=== PATIENT | female | born 1990 | race Caucasian/White ===

== ENCOUNTER → 2017-07-27 14:57 | Outpatient (CLI) | payer MEDICAID, SELFPAY ==
[2017-07-27 15:29] LABS: Basophils # 0.1 K/mm3 (0-0.2); Basophils % 0.8 % (0.1-2.0); Eosinophils # 1.7 K/mm3 (0.0-0.4); Hemoglobin 14.8 g/dL (12.2-16.2); Lymphocytes # 3.7 K/mm3 (0.7-4.5); Lymphocytes % 30.8 K/mm3 (10-50); Mean Corpuscular HGB Conc 33.7 g/dL (31.8-35.4); Mean Corpuscular Hemoglobin 30.1 pg (27.0-31.2); Mean Corpuscular Volume 89.3 fl (81-99); Mean Platelet Volume 8.2 fl (7.4-10.4); Monocytes # 0.4 K/mm3 (0.1-1.0); Monocytes % 3.6 % (1.7-9.3); Neutrophils # 6.1 K/mm3 (1.8-7.8); Neutrophils % 50.9 % (37.0-80.0); Platelet Count 311 K/mm3 (142-424); Red Blood Count 4.93 M/mm3 (4.20-5.40); Red Cell Distribution Width 12.5 % (11.5-17.5); White Blood Count 11.9 K/mm3 (4.8-10.8)
[2017-07-27 16:30] LABS: Alanine Aminotransferase 23 U/L (12-78); Albumin/Globulin Ratio 1.1 (1.1-1.8); Alkaline Phosphatase 119 U/L (46-116); Anion Gap 13.8 mEq/L (5-15); Aspartate Amino Transferase 16 U/L (15-37); Bilirubin,Total 0.6 mg/dL (0.2-1.0); Blood Urea Nitrogen 7 mg/dL (7-18); Calcium 9.1 mg/dL (8.5-10.1); Carbon Dioxide 27 mmol/L (21.0-32.0); Chloride 104 mmol/L (98-107); Creatinine,Serum 0.75 mg/dL (0.55-1.02); Estimated Glomerular Filt Rate 93 ml/min (>60); GFR (African American) 113 ML/MIN (>60); Globulin 3.7 gm/dl (1.3-3.2); Glucose 75 mg/dL (74-106); Potassium 3.8 mmoL/L (3.5-5.1); Sodium 141 mmol/L (136-145); Total Protein,Serum 7.7 gm/dL (6.4-8.2)
[2017-07-27 16:42] LABS: C-Reactive Protein < 0.2 mg/L (0.0-0.9)
[2017-07-27 16:57] LABS: Erythrocyte Sedimentation Rate 13 mm/hr (0-20)
[2017-07-29 20:12] LABS: RA Latex Turbid. 32.7 IU/mL (0.0-13.9)
[2017-07-30 12:07] LABS: PTT-LA 44.1 sec (0.0-51.9); dRVVT 43.6 sec (0.0-47.0)
[2017-07-31 11:11] LABS: Anti-Jo-1 <0.2 AI (0.0-0.9); Anti-Smith Antibody <0.2 AI (0.0-0.9); Antichromatin Antibodies <0.2 AI (0.0-0.9); Antiscleroderma-70 Antibodies <0.2 AI (0.0-0.9); RNP Antibodies 0.3 AI (0.0-0.9); Sjogren's Anti-SS-A <0.2 AI (0.0-0.9); Sjogren's Anti-SS-B <0.2 AI (0.0-0.9)
[2017-08-02 06:12] LABS: Anti-Cyclic Citrullinated Pept 6 units (0-19); Lupus Reflex Interpretation Comment: (.)
[2017-08-02 06:14] LABS: Anti-Centromere B Antibodies <0.2 AI (0.0-0.9); Anti-DNA (DS) Ab Qn <1 IU/mL (0-9)
== END ==
PROVIDERS: Visit Provider Physician Assistant
DX: I73.00 Raynaud's syndrome without gangrene (principal); R20.0 Anesthesia of skin; Z83.2 Family history of diseases of the blood and blood-forming organs and certain disorders involving the immune mechanism
CPT/HCPCS: 36415; 80053; 85025; 85613; 85651; 86038; 86140; 86200; 86431

== ENCOUNTER 2017-08-08 09:29 | Day surgery (SDC) | payer MEDICAID, SELFPAY ==
[2017-08-07 16:24] VITALS: BMI 25.0
[2017-08-08] VITALS (9 sets, daily range): BP systolic 97–116; BP diastolic 65–78; PULSE 64–90; RESP 16–18; TEMP 36.2–36.9; O2SAT 95–99
[2017-08-08 10:02] LABS: Urine Pregnancy, HCG Qual. Negative (Negative)
--- NOTE | 2017-08-08 10:57 | HMH.OPNOTE ---
Date of procedure: 08/08/17 Pre-op Diagnosis:: 1 cm left facial cheek sebaceous cyst Post-op Diagnosis:: Same Procedure performed:: Excision of 1 cm left facial cheek cyst Surgeon:: Dimitri Rolon MD REHABILITATION AIDE/SCHEDULER:: Michael Willard Anesthesia: LMA Estimated blood loss (mL): 5 Operative findings:: Sebaceous cyst excised in toto and passed off for pathologic evaluation Operative note:: After informed consent was obtained, the patient was taken to the operating room and placed in the supine position. General anesthesia with laryngeal mask airway was achieved. Her left facial cheek was prepped and draped in the sterile fashion. After infiltration of local acetic an elliptical incision was made around the lesion. The cystic lesion was excised in toto and pathologic evaluation. The subcutaneous tissue was approximated with 3-0 Vicryl and skin was then closed with Steri-Strips. Dressings were applied. The patient's laryngeal mask airway was removed and she was transferred to recovery in stable condition. Condition: stable Disposition: PACU Specimens:: Left facial cheek cyst Complications:: No immediate
--- NOTE | 2017-08-08 11:01 | HMH.ANESCL ---
[facility] Anesthesia Checklist - Patient Identification Patient Identification: Arm Band - Structural Data Admitted From: Home Planned Operative Procedure/s: excision sebaceous cyst left face Consent for Planned Operative Procedure(s) Verified: Yes Verified Documents: Surgical Consent, History and Physical - NPO Status Verified Time NPO: 00:00 - Additional verifications Anesthesia Reactions: No - Airway Assessment C-Spine Mobility Assessed: Yes (mp2) TMJ Mobility Assessed: Yes Dentition: Good Dentition - Neurological Assessment Level of Consciousness: Awake, Alert - Anesthesia Plan Anesthesia Risk discussed: Yes Anesthesia Plan: Verified ASA Class: II Anesthesia Type: MAC [facility] Anesthesia HX I have reviewed the patient's past medical history: Yes Medical History: Reports:: MRSA (15yrs ago on right side) Denies:: Cancer, Diabetes Mellitus Type 1, Diabetes Mellitus Type 2, Internal Pacemaker, Seizures Other Medical History: Reports: Other (smoker) Laterality Cases: Bilateral: Tonsillectomy Other Surgeries: Yes: . No: Pacemaker Amputation: No Fractures: No *Family Hx:: No significant family history, Bleeding Disorder
--- NOTE | 2017-08-08 11:03 | P.PN_ITS ---
[facility] Anesthesia Record Part II Discharge Time: 11:30 Destination: [facility] PACU nurse assessment reviewed?: Yes Patient Condition:: Good Anesthesia Complications:: None
--- NOTE | 2017-08-08 11:03 | P.PN_ITS ---
[facility] Anesthesia Record Part I Intake, IV Amount: 500 Estimated blood loss (mL): 5 Urine output (mL): 0 Blood Pressure: 112/78 SaO2: 99 Pulse Rate: 90 Respiratory Rate: 16 Temperature: 97.1 F Patient is:: Drowsy, Stable Stable to PACU at:: 11:00
--- NOTE | 2017-08-08 11:03 | HMH.ANESII ---
[facility] Anesthesia Record Part II Discharge Time: 11:30 Destination: [facility] PACU nurse assessment reviewed?: Yes Patient Condition:: Good Anesthesia Complications:: None
== END 2017-08-08 12:00 | disposition home or self-care (01) ==
LOC: OR 09:30
PROVIDERS: Family Provider Physician Assistant; PCP Physician Assistant; Visit Provider Surgery
PROC: (CPT 11441; principal; 2017-08-08 13:00)
DX: L72.11 Pilar cyst (principal)
CPT/HCPCS: 11441; 81025; 96374; J2405

== ENCOUNTER → 2019-05-01 18:04 | Outpatient (CLI) | payer OTHER, SELFPAY | PROVIDERS: PCP Physician Assistant; Visit Provider Podiatrist | DX: L84 Corns and callosities (principal); B07.0 Plantar wart | CPT/HCPCS: 87102; 87206; 87220 ==

== ENCOUNTER 2021-02-27 17:11 | Emergency (ER) | payer OTHER, SELFPAY ==
[2021-02-27 17:15] VITALS: BP 137/98; PULSE 91; RESP 16; TEMP 37.2; O2SAT 97; BMI 33.7
--- NOTE | 2021-02-27 18:20 | HMH.EDUTC ---
[facility] [place] Clinical Impression: Shingles Qualifiers: Herpes zoster complications: without complications Qualified Code(s): B02.9 - Zoster without complications Disposition: Home, Self-Care Condition on Discharge: Good Instructions: Shingles, DI for Shingles, Acyclovir, Tobramycin Ophthalmic Additional Instructions: Take medication as prescribed If your eye gets worse or you start have Vision changes Call Dr Dutton tomorrow as instructed at [phone] or if no changes be at [facility] on Monday at 10am for further evaluation Return if needed Do not touch or handle baby until your lesions have scabbed over and clearing up Straight to ER if any worsening of symptoms Make sure to check with pharmacy about your medication to make sure they are safe to use while Prescriptions: Acyclovir 800 mg PO 5XDAY 7 Days #35 tab Transmission Status: Pending to [facility] # Tobramycin/Dexamethasone [Tobradex Eye Drops] 1 drp EYE-LEFT Q4H #5 ml Transmission Status: Pending to [facility] # Referrals: Provider,Referral, [Primary Care Provider] - As needed [facility] [Other] - 03/01/21 10:00 am Time of Disposition: 18:36 Medical Decision Making - Christiano Inquiry Pt receiving controlled substance: No Christiano was queried for this patient: No Vital Signs: 02/27/21 17:15 Temperature 99.0 F Temperature Source Oral Pulse Rate [Right Brachial] 91 H Respiratory Rate 16 Blood Pressure [Right Arm] 137/98 H Blood Pressure Mean [Right Arm] 111 Blood Pressure Source [Right Arm] Automatic Cuff Blood Pressure Position [Right Arm] Sitting 02 Sat by Pulse Oximetry 97 Oxygen Delivery Method Room Air - Physician Consults Physician Consulted: Dr Dutton Time: 18:40 Reason -: Opthalmology Eval/Care Comment/Response: Spoke with Dr Dutton about patient and informed him of concern for shingles rash in close proxiemty to eye and he advised to start her on Tobrodex eye drops one drop every 4 hours and have her come to the office on Monday at 10am or call him tomorrow if no improvement for further instructions [facility] [place] HPI - General Stated complaint: rash L eye/face, headaches Time Seen by Provider: 02/27/21 18:20 Mode of Arrival: Ambulatory Source of Information: Patient Limitations: No Limitations Description of Symptoms (Recalled from Triage Doc. by RN): PATIENT C/O RASH TO FOREHEAD/DRUZE AREA WITH ITCHY AND BURNING EYES, HEAD PAIN AND LIGHT SENSITIVITY X 3 DAYS HEENT Symptoms (Recalled from RN notes): Yes Resp Symptoms (Recalled from RN notes): No Skin Symptoms (Recalled from RN notes): Yes MS Symptoms (Recalled from RN notes): No Functional Status (Recalled from RN notes): WNL - History of Present Illness Provider Complaint: Patient states that she noticed she had a rash on the left side of her forehead around her hair line State that it would itchy and burn when she would scratch it State that now it has spread on her forehead area and down into her eyebrow,nose under her eye area States that it is painful and is making her eyes hurt and water - Related Data Home Medications Medication Instructions Recorded Confirmed Buspirone HCl [Buspirone 7.5mg 7.5 mg PO TID 02/27/21 02/27/21 tablets] Ibuprofen [Ibuprofen 600mg 600 mg PO Q6H 02/27/21 02/27/21 Tablet] cephALEXin [Cephalexin 250mg Tab] 250 mg PO DAILY 02/27/21 02/27/21 Previous Rx's Medication Instructions Recorded Acyclovir 800 mg PO 5XDAY 7 Days #35 tab 02/27/21 Tobramycin/Dexamethasone [Tobradex 1 drp EYE-LEFT Q4H #5 ml 02/27/21 Eye Drops] Allergies Allergy/AdvReac Type Severity Reaction Status Date / Time No Known Allergies Allergy Verified 05/31/19 14:33 - Worker's Comp Is this a Worker's Comp case?: No [facility] History - Hepatitis A Screen Drug use history?: No High risk sexual behaviors?: No History of sexually transmitted infection?: No Currently employed?: No Childc
[2021-02-27 18:35] VITALS: BP 137/98; PULSE 91; RESP 16; TEMP 37.2; O2SAT 97
== END 2021-02-27 18:40 | disposition home or self-care (01) ==
PROVIDERS: Emergency Provider Nurse Practitioner
DX: B02.9 Zoster without complications (principal); F17.210 Nicotine dependence, cigarettes, uncomplicated
CPT/HCPCS: 99202; G0463

== ENCOUNTER 2021-11-24 08:26 | Emergency (ER) | payer OTHER, SELFPAY ==
--- NOTE | 2021-11-24 10:03 | EXP.UTC ---
Discharge Plan Disposition Patient Disposition: Home, Self-Care Condition: Good Chief Complaint: Upper Respiratory Infection Prescriptions Prescriptions: New azithromycin [Zithromax Z-Cruz] 250 mg tablet See Rx Instructions .ROUTE .COMPLEX Qty: 6 0RF Rx Instructions: For 250 mg dose pack: take 500 mg today (day 1), then 250 mg for 4 days (days 2-5) albuterol sulfate [Proventil HFA] 90 mcg/actuation HFA aerosol inhaler 1 - 2 inh inhalation Q6H PRN (Reason: shortness of breath or wheezing) Qty: 8.5 0RF guaifenesin [Mucinex] 600 mg tablet extended release 12hr 600 mg PO BID PRN (Reason: cough) Qty: 20 0RF Rx Instructions: 1-2 tabs every 12 hours as directed for congestion make sure to drink plenty of water with medication methylprednisolone [Medrol (Cruz)] 4 mg tablets,dose pack 4 mg PO DAILY 6 Days Qty: 6 0RF Rx Instructions: taper pack as directed No Action buspirone 7.5 MG tablet 7.5 mg PO TID Referrals Referrals: Huma Epps PA [Primary Care Provider] - Enter time for follow up Clinical Impressions Clinical Impression: Strep throat, Sinusitis, Bronchitis Stand Alone Forms Stand Alone Forms: Work/School Release, [facility] Work Release Discharge ED Provider: Beatrice Rodriguez [facility] [place] HPI General Chief complaint: Upper Respiratory Infection Stated complaint: sore throat;cough Time Seen by Provider: 11/24/21 10:10 History of Present Illness Provider Complaint: Patient states that she has been exposed to COVID and strep throat States that she has been having sinus congestion and pressure for over a week, sore scracthy throat and feels like it is trying to move into her chest area States that she use to have an inhaler and thinks she may need another one now too Related Data Home Medications Medication Instructions Recorded Confirmed buspirone 7.5 mg tablet 7.5 mg PO TID Anxiety 02/27/21 02/27/21 Previous Rx's Medication Instructions Recorded albuterol sulfate 90 mcg/actuation 1 - 2 inh inhalation Q6H PRN 11/24/21 aerosol inhaler (Proventil HFA) shortness of breath or wheezing #8.5 grams azithromycin 250 mg tablet See Rx Instructions PO .COMPLEX #6 11/24/21 (Zithromax Z-Cruz) tabs guaifenesin 600 mg tablet, 600 mg PO BID PRN cough #20 tabs 11/24/21 extended release 12 hr (Mucinex) methylprednisolone 4 mg tablets in 4 mg PO DAILY 6 days #6 tabs 11/24/21 a dose pack (Medrol (Cruz)) Allergies Allergy/AdvReac Type Severity Reaction Status Date / Time No Known Allergies Allergy Verified 11/24/21 10:11 [facility] Medical History (Updated 11/24/21 @ 10:22 by Beatrice Rodriguez APRN) Family history of lupus anticoagulant disorder Numbness of fingers Raynaud phenomenon Sebaceous cyst Social History Smoking Status: Current every day smoker tobacco type: cigarettes packs per day: 1 second hand exposure: Yes alcohol intake: never substance use type: denies use current occupational status: unemployed household members: children housing: house ROS Obtained: Yes All systems reviewed & no additional complaints except as documented and Yes Systems reviewed as appropriate & no additional complaints except as documented ENT Ears, Nose, Mouth, and Throat: Reports otalgia, Reports sinus pain, Reports sinus pressure and Reports sore throat Cardiovascular Cardiovascular: Reports system reviewed and no additional complaints, except as documented and Reports as per HPI Respiratory Respiratory: Reports system reviewed and no additional complaints, except as documented, Reports as per HPI, Reports chest congestion and Reports cough Genitourinary Female Genitourinary: Reports system reviewed and no additional complaints, except as documented Neurologic Neurologic: Reports system reviewed and no additional complaints, except as documented Physical Exam General General appearance: alert and in no apparent distress ENT ENT exam: Present mucous m
[2021-11-24 10:04] LABS: UTC Strep Screen (Rapid) Negative (Negative)
[2021-11-24 10:09] VITALS: BP 132/95; PULSE 94; RESP 16; TEMP 36.7; O2SAT 97; BMI 27.4
[2021-11-24 10:31] VITALS: BP 132/95; PULSE 94; RESP 16; TEMP 36.7
== END 2021-11-24 10:57 | disposition home or self-care (01) ==
PROVIDERS: Emergency Provider Nurse Practitioner; PCP Physician Assistant
DX: J06.9 Acute upper respiratory infection, unspecified (principal); J02.9 Acute pharyngitis, unspecified; J32.9 Chronic sinusitis, unspecified; J40 Bronchitis, not specified as acute or chronic; Z20.822 Contact with and (suspected) exposure to COVID-19; F17.210 Nicotine dependence, cigarettes, uncomplicated
CPT/HCPCS: 87880; 99212; C9803; G0463; U0003; U0005

== ENCOUNTER 2022-11-03 19:52 | Emergency (ER) | payer OTHER, SELFPAY ==
[2022-11-03 19:54] VITALS: BP 130/97; PULSE 90; RESP 16; TEMP 36.8; O2SAT 99; BMI 28.3
[2022-11-03 20:56] LABS: Chloride 108 mmol/L (98-107); Potassium 3.5 mmoL/L (3.5-5.1); Sodium 141 mmol/L (136-145)
[2022-11-03 20:59] LABS: Anion Gap 7.5 mEq/L (5-15); Blood Urea Nitrogen 10 mg/dl (7-17); Carbon Dioxide 29 mmol/L (22.0-30.0); Creatinine Clearance Estimated 159 mL/min (50-200); Estimated Glomerular Filt Rate 116 ml/min (>60); GFR (African American) 140 ML/MIN (>60)
[2022-11-03 21:00] LABS: Calcium 8.7 mg/dl (8.4-10.2); Glucose 105 mg/dl (74-100)
--- NOTE | 2022-11-03 21:14 | HMH.EDGENADL ---
Discharge Plan Disposition Patient Disposition: Home, Self-Care Condition: Good Prescriptions Prescriptions: New valacyclovir 1 gram tablet 1,000 mg PO Q8H 7 Days Qty: 21 0RF No Action buspirone 7.5 MG tablet 7.5 mg PO TID azithromycin [Zithromax Z-Cruz] 250 mg tablet See Rx Instructions .ROUTE .COMPLEX Qty: 6 0RF Rx Instructions: For 250 mg dose pack: take 500 mg today (day 1), then 250 mg for 4 days (days 2-5) albuterol sulfate [Proventil HFA] 90 mcg/actuation HFA aerosol inhaler 1 - 2 inh inhalation Q6H PRN (Reason: shortness of breath or wheezing) Qty: 8.5 0RF guaifenesin [Mucinex] 600 mg tablet extended release 12hr 600 mg PO BID PRN (Reason: cough) Qty: 20 0RF Rx Instructions: 1-2 tabs every 12 hours as directed for congestion make sure to drink plenty of water with medication methylprednisolone [Medrol (Cruz)] 4 mg tablets,dose pack 4 mg PO DAILY 6 Days Qty: 6 0RF Rx Instructions: taper pack as directed Referrals Follow up/Referrals: Huma Epps PA [Primary Care Provider] - See instructions Clinical Impressions Clinical Impression: Shingles (herpes zoster) polyneuropathy Instructions Patient Instructions: DI for Shingles Discharge ED Provider: Kimberly Castellano General Adult HPI General Chief complaint: PAIN Stated complaint: pain, burning sensation on face and hip LT side Time Seen by Provider: 11/03/22 19:57 Mode of Arrival: Ambulatory Source of Information: Patient Limitations: No Limitations Description of Symptoms (Recalled from ER Triage Doc. by RN): pt c/o burning sensation over lt eye and lt hip pain that started yesterday. pt is concerned that sgdanielle has shingles again. History of Present Illness HPI narrative: Patient has a PMHx significant for COPD who presents to the ED with complaints of pain. Patient notes that 2 years ago, she developed shingles across her face with ocular involvement. Patient notes that after months of battling shingles and put shingles pain, she finally recovered. Patient notes that for the past 24 to 36 hours, she has had recurrent pain across the left side of her face across her forehead, pentecostal region, cheek. Patient denies any vision changes at this time. Patient also notes that she is having burning across the left hip. Related Data Home Medications Medication Instructions Recorded Confirmed buspirone 7.5 mg tablet 7.5 mg PO TID Anxiety 02/27/21 02/27/21 Previous Rx's Medication Instructions Recorded albuterol sulfate 90 mcg/actuation 1 - 2 inh inhalation Q6H PRN 11/24/21 aerosol inhaler (Proventil HFA) shortness of breath or wheezing #8.5 grams azithromycin 250 mg tablet See Rx Instructions PO .COMPLEX #6 11/24/21 (Zithromax Z-Cruz) tabs guaifenesin 600 mg tablet, 600 mg PO BID PRN cough #20 tabs 11/24/21 extended release 12 hr (Mucinex) methylprednisolone 4 mg tablets in 4 mg PO DAILY 6 days #6 tabs 11/24/21 a dose pack (Medrol (Cruz)) valacyclovir 1 gram tablet 1,000 mg PO Q8H 7 days #21 tabs 11/03/22 Allergies Allergy/AdvReac Type Severity Reaction Status Date / Time No Known Allergies Allergy Verified 11/24/21 10:11 [facility] Disclaimer: The information contained in this section may have been updated after the patient was seen, as this information can be updated by other users. Medical History (Updated 11/03/22 @ 21:23 by Kimberly Castellano MD) Family history of lupus anticoagulant disorder Numbness of fingers Raynaud phenomenon Sebaceous cyst Social History (Updated 11/25/21 @ 21:10 by Beatrice Rodriguez APRN) Smoking Status: Current every day smoker tobacco type: cigarettes packs per day: 1 second hand exposure: Yes alcohol intake: never substance use type: denies use current occupational status: unemployed Travel in the last 8 weeks: None household members: children housing: house ROS Obtained: Yes All systems reviewed & no additional complai
[2022-11-03 21:45] VITALS: BP 129/72; PULSE 87; RESP 16; TEMP 36.8; O2SAT 99
== END 2022-11-03 21:46 | disposition home or self-care (01) ==
PROVIDERS: Emergency Provider Emergency Medicine; PCP Physician Assistant
DX: B02.23 Postherpetic polyneuropathy (principal); J44.9 Chronic obstructive pulmonary disease, unspecified; F17.210 Nicotine dependence, cigarettes, uncomplicated
CPT/HCPCS: 80048; 99283

== ENCOUNTER 2022-11-17 06:30 | Emergency (ER) | payer OTHER, SELFPAY ==
[2022-11-17 06:31] VITALS: BP 122/76; PULSE 95; RESP 20; TEMP 36.8; O2SAT 99; BMI 25.7
[2022-11-17 06:39] LABS: Coronavirus 19, PCR Not Detected (NotDetected); Influenza A, PCR Not Detected (NotDetected); Influenza B, PCR Not Detected (NotDetected)
--- NOTE | 2022-11-17 06:49 | XR_ITS ---
FINAL REPORT CLINICAL HISTORY: COVID rule out, isolated L sided wheezing FINDINGS: Two views of the chest were obtained. The heart size and pulmonary vascularity are within normal limits. The mediastinum is normal. No acute pulmonary abnormality is identified. There is no pneumothorax. The bony thorax is intact. There is dextroscoliosis of the thoracic spine. IMPRESSION: No active cardiopulmonary disease. Reviewed, Interpreted and Dictated by Ayush Jimenez III, MD Transcribed by Marti No Authenticated and [facility]
--- NOTE | 2022-11-17 06:50 | HMH.EDGENADL ---
Discharge Plan Disposition Patient Disposition: Home, Self-Care Condition: Good Prescriptions Prescriptions: New ondansetron 4 mg tablet,disintegrating 4 mg PO Q8H PRN (Reason: nausea and vomiting) 4 Days Qty: 12 0RF amoxicillin-pot clavulanate 875-125 mg tablet 1 tab PO BID Qty: 20 0RF No Action valacyclovir 1 gram tablet 1,000 mg PO Q8H 7 Days Qty: 21 0RF buspirone 7.5 MG tablet 7.5 mg PO TID azithromycin [Zithromax Z-Cruz] 250 mg tablet See Rx Instructions .ROUTE .COMPLEX Qty: 6 0RF Rx Instructions: For 250 mg dose pack: take 500 mg today (day 1), then 250 mg for 4 days (days 2-5) albuterol sulfate [Proventil HFA] 90 mcg/actuation HFA aerosol inhaler 1 - 2 inh inhalation Q6H PRN (Reason: shortness of breath or wheezing) Qty: 8.5 0RF guaifenesin [Mucinex] 600 mg tablet extended release 12hr 600 mg PO BID PRN (Reason: cough) Qty: 20 0RF Rx Instructions: 1-2 tabs every 12 hours as directed for congestion make sure to drink plenty of water with medication methylprednisolone [Medrol (Cruz)] 4 mg tablets,dose pack 4 mg PO DAILY 6 Days Qty: 6 0RF Rx Instructions: taper pack as directed Referrals Follow up/Referrals: Huma Epps PA [Primary Care Provider] - See instructions Activity Restrictions/Add. 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 Call your family doctor to establish care for this visit to the emergency department and schedule follow-up within 48 hours to ensure improvement. If you have any worsening of your condition or any other concerning signs or symptoms, return to the emergency department or your primary care doctor for further evaluation. Take Tylenol 1000 mg every 6 hours (4 times daily) and ibuprofen 400 mg every 6 hours (4 times daily) as needed with food and water to prevent GI upset and kidney damage. Clinical Impressions Clinical Impression: Post-tussive emesis, Sinusitis Cough Qualifiers: Cough type: acute Qualified Code(s): R05.1 - Acute cough Instructions Patient Instructions: Cough, DI for Sinusitis Discharge ED Provider: Evette Miles General Adult HPI <Jayson Paul MD - Last Filed: 11/17/22 07:02> General Chief complaint: Upper Respiratory Infection Stated complaint: positive at home covid test; sore throat, congesti Time Seen by Provider: 11/17/22 06:30 Mode of Arrival: Ambulatory Source of Information: Patient Limitations: No Limitations Description of Symptoms (Recalled from ER Triage Doc. by RN): pt states she started having cough, congestion, sore throat and headache 4 days ago, pt reports testing positive on home test this am and needs a test to confirm. Took Naproxen this am History of Present Illness HPI narrative: This is a 32-year-old female with no past medical history current smoker presenting with sinus drainage and cough. Patient states 4 days prior to arrival, she had 1 day of vomiting and diarrhea that was nonbloody, nonbilious. That lasted about 24 hours and she had no other associated symptoms. Vomiting and diarrhea have subsided, but patient since that time, has developed coughing, thick green/yellow sinus drainage, posttussive emesis and decreased p.o. intake. Has been having associated headaches secondary to all of her coughing. Denies any current fevers or chills, facial swelling, vision changes, imbalance, or any other concerns. Took a home COVID test 1 day prior to arrival, was negative, started feeling worse today, 11/17, home test was positive, so came to the ER for further evaluation. Notably, has numerous sick contacts at home. Her children are sick with the same symptoms and were for a couple days before her. Related Data Home Medications Medication Instructions Recorded Confirmed buspirone 7.5 mg tablet 7.5 mg PO TID Anxiety 02/27/21 02/27/21 Previous Rx's Medicatio
[2022-11-17 06:58] VITALS: RESP 20; O2SAT 99
[2022-11-17 07:00] VITALS: PULSE 61; O2SAT 96
[2022-11-17 09:00] VITALS: BP 118/78; PULSE 77; RESP 18; TEMP 36.8; O2SAT 99
== END 2022-11-17 09:00 | disposition home or self-care (01) ==
PROVIDERS: Emergency Medicine; Emergency Provider Emergency Medicine; PCP Physician Assistant
DX: R11.10 Vomiting, unspecified (principal); J32.9 Chronic sinusitis, unspecified; R51.9 Headache, unspecified; F17.200 Nicotine dependence, unspecified, uncomplicated
CPT/HCPCS: 71046; 87636; 96374; 99284

== ENCOUNTER 2023-02-16 09:58 | Emergency (ER) | payer OTHER, SELFPAY ==
[2023-02-16 10:45] VITALS: BP 101/47; PULSE 97; RESP 20; TEMP 36.9; O2SAT 100; BMI 25.7
--- NOTE | 2023-02-16 11:25 | EXP.UTC ---
Discharge Plan Disposition Patient Disposition: Home, Self-Care Condition: Good Prescriptions Prescriptions: New amoxicillin-pot clavulanate 875-125 mg Tablet 1 tab PO Q12H Qty: 20 0RF fluticasone propionate [Flonase Allergy Relief] 50 mcg/actuation spray,suspension 1 - 2 spray intranasal DAILY Qty: 16 0RF Rx Instructions: administer into each nostril daily pseudoephedrine HCl [Sudafed 12 Hour] 120 mg tablet extended release 120 mg PO Q12H PRN (Reason: nasal congestion) Qty: 20 0RF Referrals Follow up/Referrals: Huma Epps PA [Primary Care Provider] - See instructions Activity Restrictions/Add. Instructions Additional Instructions/Restrictions: *Monitor Temp, Over the counter Motrin or Tylenol as directed/as needed Tylenol every 4 hours and Motrin every 6 hours (as long as your family doctor has told you that you can take it) for fever or pain. and straight to ER if unable to lower temp less than 101.0 after medication given *Warm salt water gargles may help to soothe the throat *Throat Lozenges? *Warm fluids like tea with honey may help to soothe the throat? *Sleep elevated *Humidifier/Vaporizer *Flonase 2 sprays in each nostril daily but be aware that it may take 2-3 days before you notice improvement Follow up IMMEDIATELY for new or worsening symptoms or no Noticeable improvement over the next 48-72 hours. 911 for difficulty breathing or swallowing Clinical Impressions Clinical Impression: Otitis media Qualifiers: Otitis media type: unspecified Laterality: left Qualified Code(s): H66.92 - Otitis media, unspecified, left ear Instructions Patient Instructions: Middle Ear Infection, DI for Sinusitis Discharge ED Provider: Beatrice Rodriguez [facility] General Stated complaint: sinus pressure, sore throat, runny nose Mode of Arrival: Ambulatory Source of Information: Patient Limitations: No Limitations Time Seen by Provider: 02/16/23 11:25 Description of Symptoms (Recalled from Triage Doc. by RN): PATIENT C/O SINUS PRESSURE, SNEEZING, AND COUGH SINCE YESTERDAY HEENT Symptoms (Recalled from RN notes): Yes Resp Symptoms (Recalled from RN notes): Yes Skin Symptoms (Recalled from RN notes): No MS Symptoms (Recalled from RN notes): No Functional Status (Recalled from RN notes): WNL History of Present Illness Provider Complaint: Patient states that she has been having sinus congestion and pressure but got worse yesterday and left side of her face and ear is throbbing and sore to the touch States since yesterday she has been having cough and sneezing also so today when she wasnt feeling any better she came in Related Data Previous Rx's Medication Instructions Recorded amoxicillin 875 mg-potassium 1 tab PO Q12H #20 tabs 02/16/23 clavulanate 125 mg tablet fluticasone propionate 50 1 - 2 spray intranasal DAILY #16 02/16/23 mcg/actuation nasal grams spray,suspension (Flonase Allergy Relief) pseudoephedrine HCl 120 mg 120 mg PO Q12H PRN nasal 02/16/23 tablet,extended release (Sudafed congestion #20 tabs 12 Hour) Allergies Allergy/AdvReac Type Severity Reaction Status Date / Time No Known Allergies Allergy Verified 11/24/21 10:11 Worker's Comp Is this a Worker's Comp case?: No [facility] Disclaimer: The information contained in this section may have been updated after the patient was seen, as this information can be updated by other users. Medical History (Updated 02/16/23 @ 11:30 by Beatrice Rodriguez APRN) Family history of lupus anticoagulant disorder Numbness of fingers Raynaud phenomenon Sebaceous cyst Social History (Updated 11/25/21 @ 21:10 by Beatrice Rodriguez APRN) Smoking Status: Never smoker second hand exposure: Yes alcohol intake: never substance use type: denies use current occupational status: unemployed Travel in the last 8 weeks: None household members: children housing: house ROS
[2023-02-16 11:32] VITALS: BP 101/47; PULSE 97; RESP 20; TEMP 36.9; O2SAT 100
== END 2023-02-16 11:36 | disposition home or self-care (01) ==
PROVIDERS: Emergency Provider Nurse Practitioner; PCP Physician Assistant
DX: H66.92 Otitis media, unspecified, left ear (principal); J01.90 Acute sinusitis, unspecified; R07.0 Pain in throat; R09.81 Nasal congestion; R05.9 Cough, unspecified
CPT/HCPCS: 99212; 99214; G0463

== ENCOUNTER 2023-10-30 09:31 | Emergency (ER) | payer OTHER, SELFPAY ==
[2023-10-30 09:33] VITALS: BP 142/95; PULSE 110; RESP 19; TEMP 36.9; O2SAT 99; BMI 26.1
--- NOTE | 2023-10-30 09:54 | PC.NURSE ---
DR DELGADO AT BEDSIDE
--- NOTE | 2023-10-30 09:57 | US_ITS ---
PROCEDURE INFORMATION: Exam: US , Transvaginal Exam date and time: 10/30/2023 10:20 AM Age: 32 years old Clinical indication: Lmp or gestational age (in weeks): 5w 6d; Other: Vaginal bleeding; ; Additional info: 6w, vaginal bleeding LABS AND CLINICAL REPORTS: Last menstrual period start date: 09/08/2023 Gestational age (Established): 7 w 3 d Estimated due date (Established): 06/14/2024 TECHNIQUE: Imaging protocol: Real-time transvaginal obstetrical ultrasound of the maternal pelvis with image documentation. Transvaginal imaging was used for better evaluation of the fetus, adnexa, and/or cervix. COMPARISON: BX US BIOPSY OR PARACENTESIS 12/01/2016 1:43 PM FINDINGS: Gestation: Intrauterine gestation. Single. heart rate: No heart rate. Placenta: There is an 8 x 9 mm subchorionic hemorrhage. BIOMETRY: Gestational age (AUA): 5 w 6 d Estimated due date (AUA): 06/25/2024 Mean sac diameter: 1.13 cm. Dobson rump length (CRL): 2.4 mm. EGA (CRL) is 5 w 6 d MATERNAL: Right ovary/adnexa: Right ovary measures 2.1 cm x 2.1 cm x 1.27 cm. Right ovarian volume is 2.93 mL. Flow noted. Left ovary/adnexa: Left ovary measures 2.9 cm x 2.33 cm x 1.98 cm. Left ovarian volume is 7.01 mL. Flow noted. There is a cyst with septations and some internal debris measuring 8 x 13 mm. Likely a hemorrhagic or complicated corpus luteal cyst. Other findings: Estimated dated confinement via ultrasound is 06/25/2024. IMPRESSION: 1. Five weeks 6 day intrauterine gestation with no heart rate. This could be due to the early gestation. Consider follow-up as clinically indicated. 2. Subchorionic hemorrhage.
--- NOTE | 2023-10-30 10:00 | PC.NURSE ---
PT TO US
--- NOTE | 2023-10-30 10:05 | ED_ITS ---
Discharge Plan Disposition Patient Disposition: Home, Self-Care Prescriptions Prescriptions: No Action amoxicillin-pot clavulanate 875-125 mg Tablet 1 tab PO Q12H Qty: 20 0RF fluticasone propionate [Flonase Allergy Relief] 50 mcg/actuation spray,suspension 1 - 2 spray intranasal DAILY Qty: 16 0RF Rx Instructions: administer into each nostril daily pseudoephedrine HCl [Sudafed 12 Hour] 120 mg tablet extended release 120 mg PO Q12H PRN (Reason: nasal congestion) Qty: 20 0RF Referrals Follow up/Referrals: Jose Nur MD [Staff Physician] - See instructions Huma Epps PA [Primary Care Provider] - See instructions Activity Restrictions/Add. Instructions Additional Instructions/Restrictions: Call your ORNAMENTAL PAINTER to set up follow-up within the next 48 hours to repeat your hCG. ORNAMENTAL PAINTER states that vaginal ultrasound to be repeated in about a week. You can also contact Dr. Nur's office, information listed here, for close follow- up as well. Call your family doctor to establish care for this visit to the emergency department and schedule follow-up within 48 hours to ensure improvement. If you have any worsening of your condition or any other concerning signs or symptoms, return to the emergency department or your primary care doctor for further evaluation. Clinical Impressions Clinical Impression: Vaginal bleeding affecting early Print Language Print Language: Faroese Discharge ED Provider: Jayson Paul General Adult HPI General Chief complaint: Vaginal Bleeding Stated complaint: appr 6 weeks antepartum, vaginal bleeding Time Seen by Provider: 10/30/23 09:53 Mode of Arrival: Ambulatory Source of Information: Patient Limitations: No Limitations Description of Symptoms (Recalled from ER Triage Doc. by RN): pt presents to ED with c/o vaginal bleeding. pt reports she is 6 weeks with at home positive test. pt reports she began to have light spotting yesterday, but today blood has gotten darker and heavier. pt has 3 living children and this is her fourth . History of Present Illness HPI narrative: Please note that above description of symptoms, in this electronic medical record under categorization of recalled from ER triage doctor by RN are reflective of an initial nursing assessment, however, is not reflective of my full history and physical exam that was personally taken and clarified. Consequentially, this preceding description of symptoms, which may include the patient's categorized chief complaint in the EMR, do not reflect my personal clinical impression, and the ultimate description of history of present illness and patient stated complaints should be deferred to this section of the note. Unless stated otherwise or congruent with this section of the note, additional signs, symptoms, or incongruence should be interpreted as inaccurate with my clinical impression. Related Data Previous Rx's ?Medication ?Instructions ?Recorded amoxicillin 875 mg-potassium 1 tab PO Q12H #20 tabs 02/16/23 clavulanate 125 mg tablet fluticasone propionate 50 1 - 2 spray intranasal DAILY #16 02/16/23 mcg/actuation nasal grams spray,suspension (Flonase Allergy Relief) pseudoephedrine HCl 120 mg 120 mg PO Q12H PRN nasal 02/16/23 tablet,extended release (Sudafed congestion #20 tabs 12 Hour) Allergies Allergy/AdvReac Type Severity Reaction Status Date / Time No Known Allergies Allergy Verified 11/24/21 10:11 [facility] Disclaimer: The information contained in this section may have been updated after the patient was seen, as this information can be updated by other users. Medical History (Updated 10/30/23 @ 11:31 by Jayson Paul MD) Sebaceous cyst Family history of lupus anticoagulant disorder Raynaud phenomenon Numbness of fingers Social History (Updated 11/25/21 @ 21:10 by Beatrice Rodriguez APRN) Smoking Status: Current every day smoker tobacco type: cigarettes packs per day: 1 second hand exposure: Yes alcohol intake: never substance use type: denies use current occupational status: unemployed Travel in the last 8 weeks: None household members: children housing: house ROS Obtained: Yes All systems reviewed & no additional complaints except as documented Physical Exam General General appearance: alert, in no apparent distress and anxious Head Head exam: atraumatic and normocephalic Eye Eye exam: Present normal appearance, PERRL and EOMI Neck Neck exam: Present normal inspection, full ROM and trachea midline Respiratory Respiratory exam: Absent respiratory distress, wheezes, stridor, accessory muscle use or prolonged expiratory phase Cardiovascular Cardiovascular exam: Present other (Pulses equal symmetric in upper and lower extremities) Abdominal Exam Abdominal exam: Present soft and tenderness; Absent distention, guarding, rebound, rigidity or pulsatile mass Abdominal tenderness: Present suprapubic and mild Extremities Exam Extremities exam: Absent edema Neurological Exam Neurological exam: Present alert, oriented X3 and CN II-XII intact; Absent motor sensory deficit Skin Skin exam: Present warm and dry; Absent diaphoresis or erythema Medical Decision Making Medical Records Medical records reviewed: Yes I reviewed the patient's medical records. Christiano Inquiry Pt receiving controlled substance: No Christiano was queried for this patient: No Vital Signs: 10/30/23 09:33 Temperature 98.4 F Temperature Source Oral Pulse Rate [Left Radial] 110 H Respiratory Rate 19 Blood Pressure [Right Arm] 142/95 H Blood Pressure Mean [Right Arm] 110 02 Sat by Pulse Oximetry 99 Oxygen Delivery Method Room Air Lab Data Lab Results 10/30/23 09:59: Urine Color Other, Urine Appearance Sl cloudy, Urine pH 7.0, Ur Specific [place] 1.010, Urine Protein Negative, Urine Glucose (UA) Negative, Urine Ketones Negative, Urine Blood 3+, Urine Nitrate Negative, Urine Bilirubin Negative, Urine Urobilinogen 0.2, Ur Leukocyte Esterase Trace 10/30/23 10:10: WBC 9.9, RBC 4.51, Hgb 13.5, Hct 41.1, MCV 91.2, MCH 29.8, MCHC 32.7, RDW 14.0, Plt Count 259, MPV 8.2, Neut % (Auto) 64.2, Lymph % (Auto) 22.2, Clarke % (Auto) 3.7, Eos % (Auto) 8.9, Baso % (Auto) 1.0, Neut # (Auto) 6.4, Lymph # (Auto) 2.2, Clarke # (Auto) 0.4, Eos # (Auto) 0.9 H, Baso # (Auto) 0.1, Sodium 139, Potassium 3.4 L, Chloride 112 H, Carbon Dioxide 23, Anion Gap 7.4, BUN 7, C reatinine 0.50 L, Estimated Creat Clear 176, Estimated GFR 143, Est GFR ( Amer) 173, Glucose 96, Calcium 9.0, Total Bilirubin 0.8, AST 24, ALT 17, Alkaline Phosphatase 76, Total Protein 6.9, Albumin 3.8, Globulin 3.1, Albumin/Globulin Ratio 1.2, HCG, Quant 1295 H, Blood Type O Positive, Antibody Screen Negative 10/30/23 10:10 10/30/23 10:10 Orders (Tests/Meds): ED MEDICATIONS Discontinued Medications Generic Name Dose Route Start Last Admin Trade Name [place] PRN Reason Stop Dose Admin Acetaminophen 1,000 mg 10/30/23 09:57 10/30/23 10:27 Acetaminophen 500mg Tab PO 10/30/23 09:58 1,000 mg ONCE ONE Administration Multivit/Folic Acid/Iron 1 each 10/30/23 09:58 10/30/23 10:28 Multivitamin W/Iron PO 10/30/23 09:59 1 each DAILY ONE Administration ORDERS Category Date Time Status Type and Screen Stat BBK 10/30/23 10:10 Completed CBC w/Auto Diff [Complete Blood Count Auto Diff] Stat Lab 10/30/23 10:10 Completed CMP [Comprehensive Metabolic Panel] Stat Lab 10/30/23 10:10 Completed HCG,Quantitative Stat Lab 10/30/23 10:10 Completed UA [Urinalysis and Microscopic] Stat Lab 10/30/23 09:59 Results US OB transvaginal Stat Ultrasound 10/30/23 09:57 Completed Medical Decision Narrative: 32-year-old female who thinks she is about 6 weeks presenting with vaginal bleeding. States that yesterday, 10/28, started having lower abdominal cramping and vaginal bleeding. Vaginal bleeding was scant, spotting at that time. Today, she was urinating, wiped, had small blood clot a couple millimeters on toilet paper. States that she has been having lower abdominal cramping that does not radiate, is mild in intensity, just bothersome and not debilitating. Has not taken anything for this, not currently on vitamin, has not seen OB for this yet. Usually follows in [place]. No gushes of fluid, fevers, chills, urinary symptoms, or any other concerns. Does not know her blood type. History was obtained via conversation with patient. On arrival, patient hemodynamically stable, alert, oriented x4, appropriate, GCS 15, moving all extremities spontaneously, pupils equal and reactive to light. Full physical exam performed and significant for anxious. Female who is in no acute distress. Abdomen is soft, nondistended, but tender in suprapubic area just mildly with deep palpation. Unable to palpate uterus fundus. Differential includes threatened , inevitable , complete versus incomplete , UTI, abruption, placental versus vasa previa, among others. Patient was given vitamin Tylenol 1 g for symptomatic management and correction of underlying abnormalities. Workup independently interpreted and significant for nonactionable CBC or chemistry, normal kidney function, hCG only mildly elevated 1295. Independent rotation of imaging demonstrates transvaginal ultrasound with with 5-week 6-day intrauterine with no heart tones. O+ blood type, RhoGAM not necessary. See radiology read for full review of final results. On reevaluation, patient resting comfortably in bed. Given patient presentation, workup, history, this most likely represents incomplete versus early gestational changes. Is recommended the patient follow-up with her ORNAMENTAL PAINTER as soon as possible, ideally within 48 hours for repeat hCG. Patient voiced understanding. Because patient at baseline without signs or symptoms of clinical decompensation, deemed appropriate for discharge. Results were relayed to patient who voiced understanding and were agreeable to outpatient management and follow up. I discussed my clinical impression with patient and answered all questions. At this time, the evidence for any other entities in the differential is insufficient to warrant any further testing or ED observation. This was explained as well. Advisory was given that persistent or worsening symptoms require further evaluation. I confirmed the understanding of this discussion. Health And Safety Instructor disclaimer Much of this encounter note is an electronic director of market intelligence spoken language to printed text. Electronic director of market intelligence of the spoken language may permit errors. Although I have reviewed the note, some errors may still exist. Critical Care Critical Care Time Critical Care Time: No
[2023-10-30 10:22] LABS: Basophils # 0.1 K/mm3 (0-0.2); Eosinophils # 0.9 K/mm3 (0.0-0.4); Eosinophils % 8.9 % (0.1-12.0); Hematocrit 41.1 % (37.0-47.0); Hemoglobin 13.5 g/dL (12.2-16.2); Lymphocytes # 2.2 K/mm3 (0.7-4.5); Lymphocytes % 22.2 % (10-50); Mean Corpuscular HGB Conc 32.7 g/dL (31.8-35.4); Mean Corpuscular Hemoglobin 29.8 pg (27.0-31.2); Mean Corpuscular Volume 91.2 fl (81-99); Mean Platelet Volume 8.2 fl (7.4-10.4); Monocytes # 0.4 K/mm3 (0.1-1.0); Monocytes % 3.7 % (1.7-9.3); Neutrophils # 6.4 K/mm3 (1.8-7.8); Neutrophils % 64.2 % (37.0-80.0); Platelet Count 259 K/mm3 (142-424); Red Blood Count 4.51 M/mm3 (4.20-5.40); White Blood Count 9.9 K/mm3 (4.8-10.8)
[2023-10-30] MEDS: ACETAMINOPHEN 500MG TAB 1000 MG PO (10:27)
[2023-10-30] MEDS: PRENATAL MULTIVITAMIN W/IRON 1 EACH PO (10:28)
[2023-10-30 10:30] LABS: Alanine Aminotransferase 17 U/L (12-78); Albumin Level 3.8 g/dl (3.5-5.0); Albumin/Globulin Ratio 1.2 (1.1-1.8); Alkaline Phosphatase 76 U/L (38-126); Anion Gap 7.4 mEq/L (5-15); Aspartate Amino Transferase 24 U/L (14-36); Bilirubin,Total 0.8 mg/dl (0.2-1.3); Blood Urea Nitrogen 7 mg/dl (7-17); Carbon Dioxide 23 mmol/L (22.0-30.0); Chloride 112 mmol/L (98-107); Creatinine Clearance Estimated 176 mL/min (50-200); Estimated Glomerular Filt Rate 143 ml/min (>60); GFR (African American) 173 ML/MIN (>60); Globulin 3.1 g/dL (1.3-3.2); Glucose 96 mg/dl (74-100); Potassium 3.4 mmoL/L (3.5-5.1); Sodium 139 mmol/L (136-145); Total Protein,Serum 6.9 g/dl (6.3-8.2)
[2023-10-30 10:32] LABS: Microscopic, Urine URINE MICROSCOPIC (MICROSCOPIC)
[2023-10-30 10:37] LABS: Appearance,Urine SL CLOUDY (Clear); Bilirubin,Urine Negative (Negative); Blood, Urine 3+ (Negative); Color,Urine OTHER (Yellow); Glucose,Urine (UA) Negative (Negative); Ketones,Urine Negative (Negative); Leukocyte Esterase,Urine TRACE (Negative); Nitrate,Urine Negative (Negative); Protein,Urine Negative (Negative); Urobilinogen,Urine 0.2 EU/dl (0.2)
[2023-10-30 10:46] LABS: HCG,Quantitative 1295 mIU/ml (0-5.42)
--- NOTE | 2023-10-30 11:30 | PC.NURSE ---
DR DELGADO SPEAKING WITH DR PEREYRA
[2023-10-30 11:36] LABS: Bacteria,Urine Trace /lpf
[2023-10-30 11:45] VITALS: BP 122/82; PULSE 70; RESP 18; TEMP 36.8; O2SAT 100; O2SAT 96
== END 2023-10-30 11:45 | disposition home or self-care (01) ==
PROVIDERS: Emergency Provider Emergency Medicine; PCP Physician Assistant
DX: O20.9 Hemorrhage in early pregnancy, unspecified (principal); Z3A.01 Less than 8 weeks gestation of pregnancy
CPT/HCPCS: 76817; 80053; 81001; 84702; 85025; 86850; 99284

== ENCOUNTER 2023-11-01 08:46 | Outpatient (CLI) | payer OTHER, SELFPAY ==
[2023-11-01 09:52] LABS: HCG,Quantitative 397 mIU/ml (0-5.42)
== END 2023-11-01 23:59 | disposition home or self-care (01) ==
LOC: LAB 08:48
PROVIDERS: PCP Physician Assistant; Visit Provider Nurse Practitioner Obstetrics & Gynecology
DX: Z34.90 Encounter for supervision of normal pregnancy, unspecified, unspecified trimester (principal)
CPT/HCPCS: 36415; 84702

== ENCOUNTER 2024-06-10 11:10 | Emergency (ER) | payer OTHER, SELFPAY ==
[2024-06-10] VITALS (9 sets, daily range): BP systolic 106–159; BP diastolic 65–133; PULSE 67–110; RESP 20–24; TEMP 36.8; O2SAT 96–99; BMI 27.4
--- NOTE | 2024-06-10 11:31 | CT_ITS ---
FINAL REPORT TECHNIQUE: After the administration of oral and intravenous contrast, axial images were obtained through the abdomen and pelvis by computed tomography. The study was performed with techniques to keep radiation dose as low as reasonably achievable, (ALARA). Individual dose reduction techniques using automated exposure control or adjustment of mA and/or kV according to the patient's size were employed. CLINICAL HISTORY: Epigastric abdominal pain COMPARISON: None FINDINGS: CT ABDOMEN PELVIS WITH CONTRAST: Abdomen: The liver parenchyma is homogeneous. The gallbladder is absent. Calcified granulomas are present in the spleen. The pancreas, adrenals and kidneys appear unremarkable. The aorta is normal in caliber. There is no free fluid or adenopathy. Fluid is present throughout the small bowel. Pelvis: The appendix is not identified. The urinary bladder is incompletely distended. There is no free fluid or adenopathy. IMPRESSION: No acute intra-abdominal process. Prior cholecystectomy. Reviewed, Interpreted and Dictated by Jassi Hernandez MD Transcribed by Prema Hernandez Authenticated and [facility]
--- NOTE | 2024-06-10 11:31 | CT_ITS ---
FINAL REPORT TECHNIQUE: The patient was injected with IV contrast. Axial images were obtained through the chest in a PE protocol. 3-D reconstruction images were also performed. Individualized dose reduction techniques using automated exposure control or adjustment of the MA and/or KV according to patient's size were employed. CLINICAL HISTORY: Tachycardia, pain with deep breathing COMPARISON: None FINDINGS: CTA CHEST: Mediastinal vasculature is adequately opacified. No pulmonary artery filling defects are identified to suggest PE. There is no aortic dissection. There is no axillary adenopathy. There are large calcified subcarinal nodes present. Calcified granulomas are noted in the left lower lobe. The heart size is normal. There is no pericardial or pleural effusion. Limited images of the upper abdomen are unremarkable. There are nodular opacities present in the right upper lobe, ill-defined, measuring 8 mm in diameter on image #39 of series 5. There is another ill-defined nodular opacity measuring 4 mm, best seen on image #43 of series 5. Would consider repeat CT in 6 to 12 months as suggested by Fleischner criteria. IMPRESSION: No pulmonary embolus or dissection. Nodular opacities in the right upper lobe as described above, the largest measuring 8 mm in size. Would consider repeat CT in 6 to 12 months as suggested by Fleischner criteria. Reviewed, Interpreted and Dictated by Jassi Hernandez MD Transcribed by Prema Hernandez Authenticated and [facility]
--- NOTE | 2024-06-10 11:33 | ED_ITS ---
Discharge Plan Disposition Patient Disposition: Home, Self-Care Condition: Good Prescriptions Prescriptions: New dicyclomine 20 mg tablet 20 mg PO QID PRN (Reason: abdominal pain) Qty: 20 0RF ondansetron 4 mg tablet,disintegrating 4 mg PO Q8H PRN (Reason: nausea and vomiting) 4 Days Qty: 12 0RF Referrals Follow up/Referrals: Huma Epps PA [Primary Care Provider] - See instructions Activity Restrictions/Add. Instructions Additional Instructions/Restrictions: Continue to hydrate well by drinking plenty of fluids. You are being prescribed Zofran to help with nausea. You are also being prescribed Bentyl to help with spasms. Take these medications as prescribed. Follow-up with your primary care physician if symptoms do not improve. If you become concerned for your health for any reason, return to the emergency department for evaluation. Clinical Impressions Clinical Impression: Abdominal pain, Nausea & vomiting, Diarrhea Instructions Patient Instructions: DI for Acute Abdominal Pain Print Language Print Language: Serbian Discharge ED Provider: Ketan Johnson General Adult HPI General Chief complaint: Abdominal Pain Stated complaint: abd/back pain Time Seen by Provider: 06/10/24 11:26 History of Present Illness HPI narrative: Francisco Galdamez is a 33y female with past medical history of cholecystectomy and 3 C-sections who presents to the emergency department for complaints of abdominal pain. Patient states that over the last 2 to 3 days, she has had nonbloody diarrhea at home. She is also had worsening epigastric abdominal pain and then suddenly had sharp pain to her mid back that is radiating from her epigastric region. She reports some nausea but denies any vomiting. She states that this feels similar to when she had gallbladder attack and had to have it removed. She denies any dysuria or hematuria. She denies any chest pain or shortness of breath but states that it does hurt to take a deep breath. Related Data Previous Rx's ?Medication ?Instructions ?Recorded dicyclomine 20 mg tablet 20 mg PO QID PRN abdominal pain 06/10/24 #20 tabs ondansetron 4 mg disintegrating 4 mg PO Q8H PRN nausea and 06/10/24 tablet vomiting 4 days #12 tabs Allergies Allergy/AdvReac Type Severity Reaction Status Date / Time No Known Allergies Allergy Verified 11/01/23 09:51 [facility] Disclaimer: The information contained in this section may have been updated after the patient was seen, as this information can be updated by other users. Medical History (Updated 06/10/24 @ 14:05 by Ketan Johnson MD) Sebaceous cyst Family history of lupus anticoagulant disorder Raynaud phenomenon Numbness of fingers Surgical History (Updated 11/01/23 @ 09:57 by TRACIE Joya) History of Family History (Updated 11/01/23 @ 09:58 by TRACIE Joya) Other Asthma Cancer FHx: mental illness Social History Smoking Status: Current every day smoker tobacco type: cigarettes packs per day: 1 second hand exposure: Yes alcohol intake: never substance use type: denies use current occupational status: unemployed Travel in the last 8 weeks: None household members: children housing: house Have you lived/traveled outside US in past 30 days?: No Contact w/someone who lives/traveled outside US past 30 days?: No Exposure to someone with infectious disease in past 14 days?: No Do you have a fever (greater than 100.4 F or 38 C)?: No Have you tested positive for COVID-19: No Exposed to someone with COVID-19 in past 14 days?: No Do you have a sore throat?: No Do you have a cough?: No Do you have any weakness?: No Do you have any diarrhea?: No Are you experiencing any unusual bleeding?: No Do you have any muscle aches/pain?: No Do you have any abdominal pain?: Yes Are you experiencing loss of taste or smell?: No Other Medical History Have you received the Flu Vaccine for this season: No Have you received the Pneumonia Vaccine: No ROS Obtained: Yes Systems reviewed as appropriate & no additional complaints except as documented Physical Exam General General appearance: alert Comment: Tearful, holding her abdomen and mid back with her hand Head Head exam: atraumatic Eye Eye exam: Present normal appearance ENT ENT exam: Present normal external ear exam Neck Neck exam: Present full ROM Chest Chest inspection: Present symmetric chest wall rise Respiratory Respiratory exam: Present normal lung sounds bilaterally; Absent respiratory distress, wheezes or stridor Cardiovascular Cardiovascular exam: Present regular rate and normal rhythm Abdominal Exam Abdominal exam: Present soft, tenderness (epigastric) and guarding (Epigastric); Absent distention, rebound or rigidity Extremities Exam Extremities exam: Present normal inspection Back Exam Back exam: Present normal inspection; Absent tenderness Neurological Exam Neurological exam: Present alert and oriented X3 Psychiatric Psychiatric exam: Present normal affect Skin Skin exam: Present warm and dry Medical Decision Making Medical Records Screening: Per USPSTF and CDC recommendations, given the prevalence of disease in our region, it is our hospital?s policy to screen for HIV and viral Hepatitis for all patients aged 18 and over and those with ongoing risk factors. Christiano Inquiry Pt receiving controlled substance: No Vital Signs: 06/10/24 11:20 06/10/24 11:26 06/10/24 11:30 Temperature 98.2 F Temperature Source Oral Pulse Rate 104 H 98 H Pulse Rate [Left Radial] 110 H Respiratory Rate 24 Blood Pressure 140/89 145/93 H Blood Pressure [Right Arm] 140/89 Blood Pressure Mean [Right Arm] 106 02 Sat by Pulse Oximetry 98 99 97 Oxygen Delivery Method Room Air Room Air Room Air 06/10/24 12:00 06/10/24 12:31 06/10/24 13:00 Temperature Temperature Source Pulse Rate 94 H 77 73 Pulse Rate [Left Radial] Respiratory Rate Blood Pressure 159/133 H 120/65 124/82 Blood Pressure [Right Arm] Blood Pressure Mean [Right Arm] 02 Sat by Pulse Oximetry 99 98 96 Oxygen Delivery Method Room Air Room Air Room Air 06/10/24 13:30 06/10/24 14:03 06/10/24 14:06 Temperature 98.2 F Temperature Source Pulse Rate 83 67 70 Pulse Rate [Left Radial] Respiratory Rate 20 Blood Pressure 119/78 106/75 L 106/75 L Blood Pressure [Right Arm] Blood Pressure Mean [Right Arm] 02 Sat by Pulse Oximetry 97 97 Oxygen Delivery Method Room Air Room Air Room Air Lab Data Lab Results 06/10/24 11:13: Urine Color Yellow, Urine Appearance Clear, Urine pH 6.0, Ur Specific Tyler 1.025, Urine Protein Negative, Urine Glucose (UA) Negative, Urine Ketones Negative, Urine Blood Negative, Urine Nitrate Negative, Urine Bilirubin Negative, Urine Urobilinogen 1.0, Ur Leukocyte Esterase Negative, Urine RBC Occasional, Urine WBC 3-5, Ur Squamous Epith Cells 3-5, Urine Bacteria Trace, Urine HCG, Qual Negative 06/10/24 11:22: WBC 8.4, RBC 5.04, Hgb 14.7, Hct 43.7, MCV 86.7, MCH 29.2, MCHC 33.6, RDW 13.2, Plt Count 284, MPV 10.5 H, Neut % (Auto) 55.1, Lymph % (Auto) 23.5, [place] % (Auto) 8.7, Eos % (Auto) 11.6, Baso % (Auto) 0.6, Neut # (Auto) 4.6, Lymph # (Auto) 2.0, [place] # (Auto) 0.7, Eos # (Auto) 1.0 H, Baso # (Auto) 0.1, VBG pH 7.37, VBG pCO2 36.7, VBG pO2 47.0 H, VBG HCO3 20.5 L, VBG Total CO2 21.7 L, VBG O2 Saturation 84.9 H, VBG Base Excess -4.8 L, VBG Lactic Acid 1.1, Sodium 140, Potassium 4.1, Chloride 110 H, Carbon Dioxide 23, Anion Gap 11.1, BUN 12, Creatinine 0.60, Estimated Creat Clear 153, Estimated GFR 115, Est GFR ( Amer) 139, Glucose 98, Calcium 8.9, Total Bilirubin 0.8, AST 29, ALT 23, Alkaline Phosphatase 111, Troponin I < 0.01, Total Protein 7.7, Albumin 4.5, Globulin 3.2, Albumin/Globulin Ratio 1.4, Lipase 62 06/10/24 11:22 06/10/24 11:22 Orders (Tests/Meds): ED MEDICATIONS Discontinued Medications Generic Name Dose Route Start Last Admin Trade Name Freq PRN Reason Stop Dose Admin Dicyclomine HCl 20 mg 06/10/24 13:25 06/10/24 13:31 Dicyclomine 10mg Capsule PO 06/10/24 13:26 20 mg ONCE ONE Administration Iopamidol 70 ml 06/10/24 12:11 06/10/24 12:14 Iopamidol-370 (76%);100ml Bottle IV 06/10/24 12:12 70 ml ONCE ONE Administration Ketorolac Tromethamine 15 mg 06/10/24 13:25 06/10/24 13:30 Ketorolac 30mg/Ml Vial IV 06/10/24 13:26 15 mg ONCE ONE Administration Morphine Sulfate 4 mg 06/10/24 11:31 06/10/24 11:38 Morphine 4mg/Ml Syringe IV 06/10/24 11:32 4 mg ONCE ONE Administration Ondansetron HCl 4 mg 06/10/24 11:31 06/10/24 11:38 Ondansetron 4mg/2ml Vial IV 06/10/24 11:32 4 mg ONCE ONE Administration Sodium Chloride 50 ml 06/10/24 12:12 06/10/24 12:14 0.9 % Sodium Chloride 50 Ml Vial IV 06/10/24 12:13 50 ml ONCE ONE Administration ORDERS Category Date Time Status CT abdomen pelvis w con Stat Cat Scan 06/10/24 11:[address] angio chest PE protocol Stat Cat Scan 06/10/24 11:31 Completed CBC w/Auto Diff [Complete Blood Count Auto Diff] Stat Lab 06/10/24 11:22 Completed CMP [Comprehensive Metabolic Panel] Stat Lab 06/10/24 11:22 Completed Lipase Stat Lab 06/10/24 11:22 Completed Trop I [Troponin I] Stat Lab 06/10/24 11:22 Completed Urinalysis and Microscopic Stat Lab 06/10/24 11:13 Completed Urine , HCG Qual. Stat Lab 06/10/24 11:13 Completed VBG [Venous Blood Gas] Stat RT 06/10/24 11:22 Completed ECG Data Tracing #1: I reviewed this ECG and interpreted as documented below: Normal sinus rhythm with ventricular rate of [address] elevations or depressions. QTc normal at 386, UT interval normal at 115. Medical Decision Narrative: Francisco Galdamez is a 33y female with past medical history of cholecystectomy and 3 C-sections who presents to the emergency department for complaints of abdominal pain. Patient states that over the last 2 to 3 days, she has had nonbloody diarrhea at home. She is also had worsening epigastric abdominal pain and then suddenly had sharp pain to her mid back that is radiating from her epigastric region. She reports some nausea but denies any vomiting. She states that this feels similar to when she had gallbladder attack and had to have it removed. She denies any dysuria or hematuria. She denies any chest pain or shortness of breath but states that it does hurt to take a deep breath. On arrival, she is tachycardic with a heart rate of 104 bpm, normotensive, afebrile, breathing comfortably on room air with appropriate oxygen saturation. Physical exam, stated above, revealed a cheerful female who is holding her upper abdomen with 1 hand and then the middle of her back with the other hand. Cardiopulmonary exam revealed tachycardia but no murmurs or wheezing. Abdomen demonstrated tenderness in the epigastric region without peritonitis/guarding. Differential diagnosis includes, but is not limited to: Acute pancreatitis, choledocolithiasis, ectopic , pulmonary embolism, ACS, bowel obstruction, among others. Workup in the emergency department included UA, UPT, troponin, VBG with lactate, CMP, CBC, lipase, EKG, CT abdomen pelvis with IV contrast, CT PE protocol. Patient's symptoms were treated with 4 mg of IV morphine and 4 mg IV Zofran initially. Patient CT imaging was interpreted by me personally. No pulmonary embolism or groundglass opacities. Radiology comments on nodular opacities in the right upper lobe and recommended outpatient repeat CT. See radiology report for details. CT abdomen pelvis without any acute findings. UTI, patient's labs demonstrated no leukocytosis, no anemia, VBG with pH normal at 7.37 and lactate normal at 1.1. CMP unremarkable nonactionable with normal liver enzymes and no DURGA. Initial troponin less than 0.01. Negative UPT. Urine without evidence of infection. On reassessment, patient still complained of severe abdominal pain that did not improve with the morphine. She was then given 15 mg IV Toradol and 20 mg oral Bentyl. On reassessment after this, she reported improvement in her pain but it had not completely resolved. Is felt that she could have viral gastritis but she does not have any emergent identifiable cause for her abdominal pain on her workup today. She stated that she felt comfortable going home with a prescription for Bentyl and Zofran for her symptoms and to follow-up with her primary care physician if they continued. She was given return precautions. All questions were answered. She demonstrated understanding and was in agreement with this plan. She was then discharged from the emergency department in stable condition. Critical Care Critical Care Time Critical Care Time: No
--- NOTE | 2024-06-10 11:35 | PC.NURSE ---
SPOKE TO LARON IN RESPIRATORY ABOUT VBG
[2024-06-10 11:37] LABS: Basophils # 0.1 K/mm3 (0-0.2); Basophils % 0.6 % (0.1-2.0); Eosinophils % 11.6 % (0.1-12.0); Hematocrit 43.7 % (37.0-47.0); Hemoglobin 14.7 g/dL (12.2-16.2); Lymphocytes % 23.5 % (10-50); Mean Corpuscular HGB Conc 33.6 g/dL (31.8-35.4); Mean Corpuscular Hemoglobin 29.2 pg (27.0-31.2); Mean Corpuscular Volume 86.7 fl (81-99); Mean Platelet Volume 10.5 fl (7.4-10.4); Monocytes # 0.7 K/mm3 (0.1-1.0); Monocytes % 8.7 % (1.7-9.3); Neutrophils # 4.6 K/mm3 (1.8-7.8); Neutrophils % 55.1 % (37.0-80.0); Platelet Count 284 K/mm3 (142-424); Red Blood Count 5.04 M/mm3 (4.20-5.40); Red Cell Distribution Width 13.2 % (11.5-17.5); White Blood Count 8.4 K/mm3 (4.8-10.8)
[2024-06-10] MEDS: MORPHINE 4MG/ML SYRINGE 4 MG IV (11:38)
[2024-06-10] MEDS: ONDANSETRON 4MG/2ML VIAL 4 MG IV (11:38)
[2024-06-10 11:41] LABS: Albumin Level 4.5 g/dl (3.5-5.0); Chloride 110 mmol/L (98-107); Lactate Venous 1.1 mmol/L (0.4-2.0); Potassium 4.1 mmoL/L (3.5-5.1); Sodium 140 mmol/L (136-145); VBG Base Excess -4.8 mmol/L (-2.4-2.3); VBG HCO3 20.5 mmol/L (23-30); VBG Oxygen Saturation 84.9 % (50-70); VBG PCO2 36.7 mmol/L (35-51); VBG PH 7.37 mmol/L (7.31-7.41); VBG Total CO2 21.7 mmol/L (23-27)
--- NOTE | 2024-06-10 11:41 | ECG_ITS ---
APPROVED REPORT Exam: Resting ECG HR:86 bpm ECG Measurements Heart Rate 86 AXES [place] 115 P 122 QRSd 114 QRS 158 QT 343 T 161 QTc 386 Conclusion ECTOPIC ATRIAL RHYTHM WITH SHORT NY INTERVAL POSSIBLE RIGHT VENTRICULAR HYPERTROPHY [SOME/ALL OF: PROMINENT R IN V1, LATE TRANSITION, RAD, MARIAH, SSS] MODERATE ST DEPRESSION [0.05+ mV ST DEPRESSION] ABNORMAL ECG Electronically signed by : KAMRAN NORMAN, 06/11/2024 23:38:36
[2024-06-10 11:44] LABS: Alanine Aminotransferase 23 U/L (12-78); Albumin/Globulin Ratio 1.4 (1.1-1.8); Alkaline Phosphatase 111 U/L (38-126); Anion Gap 11.1 mEq/L (5-15); Aspartate Amino Transferase 29 U/L (14-36); Bilirubin,Total 0.8 mg/dl (0.2-1.3); Blood Urea Nitrogen 12 mg/dl (7-17); Calcium 8.9 mg/dl (8.4-10.2); Carbon Dioxide 23 mmol/L (22.0-30.0); Creatinine Clearance Estimated 153 mL/min (50-200); Estimated Glomerular Filt Rate 115 ml/min (>60); GFR (African American) 139 ML/MIN (>60); Globulin 3.2 g/dL (1.3-3.2); Glucose 98 mg/dl (74-100); Lipase 62 U/L (23-300); Total Protein,Serum 7.7 g/dl (6.3-8.2)
[2024-06-10 11:46] LABS: Microscopic, Urine URINE MICROSCOPIC (MICROSCOPIC)
[2024-06-10 11:53] LABS: Appearance,Urine Clear (Clear); Color,Urine Yellow (Yellow)
[2024-06-10 11:55] LABS: Bacteria,Urine Trace /lpf; Bilirubin,Urine Negative (Negative); Blood, Urine Negative (Negative); Glucose,Urine (UA) Negative (Negative); Ketones,Urine Negative (Negative); Leukocyte Esterase,Urine Negative (Negative); Nitrate,Urine Negative (Negative); Protein,Urine Negative (Negative); RBC,Urine Occasional #/hpf (0-3); Specific Gravity, Urine 1.025 (1.005-1.030)
[2024-06-10 11:57] LABS: Urine Pregnancy, HCG Qual. Negative (Negative)
[2024-06-10 12:02] LABS: Troponin I < 0.01 ng/ml (0.00-0.034)
[2024-06-10] MEDS: 0.9 % SODIUM CHLORIDE 50 ML VIAL IV (12:14)
[2024-06-10] MEDS: IOPAMIDOL-370 (76%);100ML BOTTLE 70 ML IV (12:14)
--- NOTE | 2024-06-10 12:14 | PC.NURSE ---
PT IS GONE TO CT
--- NOTE | 2024-06-10 12:17 | PC.NURSE ---
pt returned from ct
--- NOTE | 2024-06-10 13:24 | PC.NURSE ---
er at bedside
[2024-06-10] MEDS: KETOROLAC 30MG/ML VIAL 15 MG IV (13:30)
[2024-06-10] MEDS: DICYCLOMINE 10MG CAPSULE 20 MG PO (13:31)
== END 2024-06-10 14:11 | disposition home or self-care (01) ==
PROVIDERS: Emergency Provider Student in an Organized Health Care Education/Training Program; PCP Physician Assistant
DX: R10.13 Epigastric pain (principal); R19.7 Diarrhea, unspecified; R11.2 Nausea with vomiting, unspecified; F17.210 Nicotine dependence, cigarettes, uncomplicated
CPT/HCPCS: 71275; 74177; 80053; 81001; 81025; 82803; 83690; 84484; 85025; 93005; 96374; 96375; 99285; J1885; J2270; J2405; Q9967

== ENCOUNTER 2024-08-06 11:41 | Outpatient (CLI) | payer OTHER, SELFPAY ==
[2024-08-06 13:04] LABS: HCG,Quantitative 104150 mIU/ml (0-5.42)
[2024-08-07 12:16] LABS: Progesterone 16.2 ng/mL (.)
== END 2024-08-06 23:59 | disposition home or self-care (01) ==
LOC: LAB 11:42
PROVIDERS: PCP Physician Assistant; Visit Provider Obstetrics & Gynecology
DX: Z32.01 Encounter for pregnancy test, result positive (principal)
CPT/HCPCS: 36415; 84144; 84702

== ENCOUNTER 2024-09-02 11:23 | Outpatient (CLI) | payer OTHER, SELFPAY ==
[2024-09-02 12:19] LABS: Basophils % 0.3 % (0.1-2.0); Eosinophils # 0.6 Kmm3 (0.0-0.4); Eosinophils % 5.1 % (0.1-12.0); Hematocrit 39.9 % (37.0-47.0); Hemoglobin 13.6 g/dL (12.2-16.2); Immature Granulocytes # 0.04 10^3uL; Immature Granulocytes % 0.3 %; Lymphocytes # 2.5 K/mm3 (0.7-4.5); Lymphocytes % 20.7 % (10-50); Mean Corpuscular HGB Conc 34.1 g/dL (31.8-35.4); Mean Corpuscular Hemoglobin 29.4 pg (27.0-31.2); Mean Corpuscular Volume 86.2 fl (81-99); Mean Platelet Volume 10.5 fl (7.4-10.4); Monocytes # 0.5 K/mm3 (0.1-1.0); Monocytes % 4.4 % (1.7-9.3); Neutrophils # 8.3 K/mm3 (1.8-7.8); Neutrophils % 69.2 % (37.0-80.0); Nucleated Red Blood Cells # 0 10^3/uL; Nucleated Red Blood Cells % 0 %; Platelet Count 310 K/mm3 (142-424); Red Blood Count 4.63 M/mm3 (4.20-5.40); Red Cell Distribution Width 13.6 % (11.5-17.5); Red Cell Distribution Width-SD 42.6 fL
[2024-09-02 13:18] LABS: HIV Combo NEGATIVE (Negative)
[2024-09-02 13:26] LABS: Hepatitis C Ab Qual. W/ RFX NEGATIVE (Negative)
[2024-09-02 15:31] LABS: RPR W/RFX Titers Nonreactive (Nonreactive)
[2024-09-03 08:13] LABS: Hepatitis B Surface Antigen Negative (Negative); Rubella Antibodies, IgG 6.25 index (Immune >0.99)
== END 2024-09-02 23:59 | disposition home or self-care (01) ==
LOC: LAB 11:24
PROVIDERS: PCP Physician Assistant; Visit Provider Obstetrics & Gynecology
DX: Z34.91 Encounter for supervision of normal pregnancy, unspecified, first trimester (principal)
CPT/HCPCS: 36415; 85025; 86592; 86762; 86803; 86850; 87340; 87389

== ENCOUNTER 2024-11-07 15:30 | Outpatient (CLI) | payer OTHER, SELFPAY ==
--- OUTSIDE RECORDS SUMMARY | 2024-11-08 10:38 | XMS_ITS | Clinical Summary ---
Author Organization [facility] Address [address] [place] [address] Care Team Providers Care Cavity Pump Operator Name Role Phone Huma Epps Primary Care Provider [phone] Allergies No known active allergies Medications busPIRone (Buspar) 7.5 MG tablet Take 1 tablet by mouth 3 (three) times a day. 1 Active ondansetron ODT (Zofran-ODT) 8 MG disintegrating tablet DISSOLVE 1 TABLET(8 MG) ON THE TONGUE EVERY 8 HOURS NEEDED FOR NAUSEA OR VOMITING 20 tablet 3 1 Active Active Problems Problem Noted Date Diagnosed Date History of delivery 11/18/2020 Obesity (BMI 30.0-34.9) 11/18/2020 Supervision of other normal , antepartu m 10/20/2020 Assessment & Plan (02/05/2021 10:10 AM EDT): - GBS today - continue PNV - R c/s 02/23 - RTC 1 week Assessment & Plan (01/21/2021 11:57 AM EDT): - prelim growth US 56%, posterior placenta, GREGORY 19 - R C/S 02/23 - continue PNV - RTC 2 weeks Assessment & Plan (01/06/2021 11:24 AM EDT): - plan R c/s 02/23 - S>D, poly - next US 01/21 - continue PNV - RTC 2 weeks Assessment & Plan (12/23/2020 12:45 PM EDT): - h/o c/s x 2 - scheduled for repeat - prelim read of growth US today: EFW 55%, poly with MVP > 8, GREGORY 22, normal jazzmine - repeat growth in 4 weeks - LARC pamphlets given today - RTC 2 weeks Assessment & Plan (12/09/2020 1:04 PM EDT): - flu shot and Tdap today - labs reviewed, O+ - h/o c/s x 2, scheduled for repeat, declines BTL - size greater than dates - growth US ordered - pepcid q day Rx for GERD - RTC 2 weeks for routine visit Vaginal bleeding in 09/22/2020 Constipation 09/22/2020 Scoliosis 10/11/2017 Elevated rheumatoid factor 10/10/2017 Polyarthralgia 10/10/2017 Resolved Problems Problem Noted Date Diagnosed Date Resolved Date Positive urine test 07/06/2020 10/20/2020 Pap smear for cervical cancer screening 04/22/2020 10/20/2020 Immunizations Immunization Administration Dates Next Due DTaP, Unspecified 11/22/1994, 3,07/11/1991,1990,01/10/1991 HPV, Quadrivalent 02/01/2008,09/10/2007,06/26/19 08 Hep A, Adult 11/16/2018 Hep B, Adolescent or Pediatric 06/02/2000,1999,10/19/1999 HiB, unspecified 04/13/1992, 2,03/12/1991,1990 Influenza, injectable, quadr ivalent, preservative free, pediatric 12/09/2020 MMR 10/19/1999,04/13/1992 Polio, Unspecified 11/22/1994, 3,03/12/1991,1990 TD (adult), 2 Lf tetanus tox oid, preservative free, adsorbed 10/31/2003 Tdap 12/09/2020,11/16/2018 Family History Medical History Relation Name Comments Acute lymphoblastic leukemia Other 1 Diabetes Other 2 Hypertension Other 3 Breast cancer Other 4 Non-Hodgkin's lymphoma Other 5 Relation Name Status Comments Other 1 Other 2 Other 3 Other 4 Other 5 Social History Tobacco Use Types Packs/Day Years Used Date Smoking Tobacco: Every Day Smokeless Tobacco: Never Alcohol Use Standard Drinks/Week Comments Yes 0 (1 standard drink = 0.6 oz pure alcohol) Alcoholic Drinks/day: Rarely consumes alcohol Comments No Sex and Gender Information Value Date Recorded Sex Assigned at Not on file Legal Sex Female 6:52 PM EDT Gender Identity Not on file Sexual Orientation Not on file Last Filed Vital Signs Vital Sign Reading Time Taken Comments Blood Pressure 115/67 02/05/2021 10:06 AM EDT Pulse 72 08/06/2020 10:24 AM EDT Temperature 37.2 C (99 F) 07/29/2019 9:06 AM EDT Respiratory Rate 16 07/29/2019 9:06 AM EDT Oxygen Saturation - - Inhaled Oxygen Concentration - - Weight 98.4 kg (217 lb) 02/05/2021 10:06 AM EDT Height 165.1 cm (5' 5 ) 08/19/2020 10:47 AM EDT Body Mass Index 36.11 08/19/2020 10:47 AM EDT Plan of Treatment Health Maintenance Due Date Last Done Comments [facility]-Depression Screening 1990 [facility]-/Child/Adol SDOH Screenings 1990 [facility]-Varicella Vaccines (1 of 2 - 13+ 2-dose series) 10/31/2003 [facility]- SDOH Screenings 2008 [facility]-Adult SDOH Screenings 2008 [facility]-Pap Smear 10/31/2011 [facility]-Cervical Cancer Screening 2020 [facility]-HPV/Cotest 2020 [id number] Vaccine ( season) 2023 [facility]-Influenza Vaccine (#1) 2024 12/09/2020 [facility]-DTaP,Tdap,and Td Vaccines (8 - Td or Tdap) 12/09/2030 12/09/2020, 11/16/2018, 10/31/2003, Additional history exists [facility]-Zoster Vaccines (1 of 2) 2040 [facility]-HIB Vaccines Completed 04/13/1992, 12/1991, 03/12/1991, Additional history exists [facility]-IPV Vaccines Aged Out 11/22/1994, 02/1993, 03/12/1991, Additional history exists No longer eligible based on patient's age to complete this topic [facility]-Hepatitis B Vaccines Completed 001, 11/16/1999, 10/19/1999 HPV Vaccines Completed 02/01/2008, 12/2007, 06/26/2007 [facility]-Hepatitis A Vaccines Aged Out 11/16/2018 No longer eligible based on patient's age to complete this topic [facility]-Pneumococcal Vaccine: Pediatrics (0 to 5 Years) and At-Risk Patients (6 to 49 Years) Aged Out No longer eligible based on patient's age to complete this topic [facility]-Rotavirus Vaccines Aged Out No lo nger eligible based on patient's age to complete this topic Insurance [employer] Care Teams Cavity Pump Operator Relationship Specialty Start Date End Date Huma Epps PA [address] [place] [address] PCP - General 08/14/20
== END 2024-11-07 23:59 | disposition home or self-care (01) ==
LOC: LAB.DROPOF 11-08 10:35
PROVIDERS: PCP Obstetrics & Gynecology; Visit Provider Obstetrics & Gynecology
DX: R82.79 Other abnormal findings on microbiological examination of urine (principal)
CPT/HCPCS: 87086; 87088; 87186

== ENCOUNTER 2024-11-11 12:47 | Outpatient (CLI) | payer OTHER, SELFPAY ==
--- OUTSIDE RECORDS SUMMARY | 2024-11-11 12:50 | XMS_ITS | Clinical Summary ---
Author Organization [facility] Address [address] [place] [address] Care Team Providers Care Hotbed Operator Name Role Phone Huma Epps Primary Care Provider [phone] Allergies No known active allergies Medications busPIRone [...] 10/31/2011 [facility]-Cervical Cancer Screening 2020 [facility]-HPV/Cotest 2020 [id number] Vaccine ( season) 2023 [facility]-Influenza Vaccine (#1) [...] Insurance [employer] Care Teams Hotbed Operator Relationship Specialty Start Date End Date Huma Epps PA [address] [place] [address] PCP - General 08/14/20
--- NOTE | 2024-11-11 13:00 | US_ITS ---
PROCEDURE: US OB /MATERNAL DETAIL CLINICAL INDICATION: 20 week anatomy COMPARISON: No exams were available for comparison FINDINGS: Transabdominal sonographic images of the pelvis were obtained. From her established due date she is 20 weeks 5 days. Single viable intrauterine gestation. Cephalic position. Placenta: Posterior with a lateral wrapplacenta grade 1. There is an average amount of fluid. The cervix appears satisfactory. Closed and measuring 3.0 cm in length. Complete survey performed and was unremarkable on the submitted images as in PACS. No discrete anomalies identified on survey imaging by technologist. Active fetus. Three-vessel cord with satisfactory umbilical cord insertion. 4- chamber heart noted. Situs, aortic arch, LVOT, RVOT, three-vessel view appear normal. Survey of brain & ventricles Unremarkable. Cerebellum, thalamus, choroid plexus, cisterna magna appear normal. Face and neck survey unremarkable. Profile, nasion, lips and nose appeared normal. Diaphragm and chest views unremarkable. Abdomen: Both kidneys noted and unremarkable. Stomach and bladder noted and satisfactory. Spine: Survey of the spine satisfactory with no anomalies identified nor imaged. Cervical, thoracic, lower spine appear normal. Both arms and legs noted. Amniotic Fluid: Adequate. MVP 3.45 cm. Measurements: Average ultrasound age 20weeks 4days. Estimated due date by ultrasound age 1203/27/2025. Estimated weight 383g BPD = 20weeks 0 days HC = 20weeks 1day AC = 21weeks 2days FL = 20weeks 6days Growth Percentile= 54 Heart Rate = seen but rate not documented. Cerebellum = 20weeks Humerus = 20weeks 6days HC/AC is 1.1 FL/BPD is 0.75 FL/AC is 0.21 IMPRESSION: 1. Viable fetus in the cephalic presentation with a posterior laterally wrapped placenta grade 1. 2. The fluid is within normal limits with an MVP 3.45 cm. 3. Anatomical scan appears normal. 4. biometry is consistent with the dates. Dictated by: Jose Nur MD 11/11/2024 15:08 Jose Nur MD in OV 11/11/2024 15:08
== END 2024-11-11 23:59 | disposition home or self-care (01) ==
LOC: RAD 12:47
PROVIDERS: PCP Physician Assistant; Visit Provider Obstetrics & Gynecology
DX: O09.292 Supervision of pregnancy with other poor reproductive or obstetric history, second trimester (principal); Z3A.20 20 weeks gestation of pregnancy
CPT/HCPCS: 76811

== ENCOUNTER 2025-01-10 13:03 | Outpatient (CLI) | payer OTHER, SELFPAY ==
[2025-01-10 14:26] LABS: Hematocrit 35.5 % (37.0-47.0); Hemoglobin 12.0 g/dL (12.2-16.2); Immature Granulocytes % 1.4 %; Mean Corpuscular HGB Conc 33.8 g/dL (31.8-35.4); Mean Corpuscular Hemoglobin 30.5 pg (27.0-31.2); Mean Corpuscular Volume 90.1 fl (81-99); Nucleated Red Blood Cells % 0 %; Platelet Count 273 K/mm3 (142-424); Red Blood Count 3.94 M/mm3 (4.20-5.40); Red Cell Distribution Width-SD 42.9 fL; White Blood Count 11.7 K/mm3 (4.8-10.8)
[2025-01-10 14:34] LABS: Glucose 1 Hour 120 mg/dL (74-100)
[2025-01-10 15:14] LABS: RPR W/RFX Titers Nonreactive (Nonreactive)
== END 2025-01-10 23:59 | disposition home or self-care (01) ==
LOC: LAB 13:04
PROVIDERS: PCP Family Medicine; Visit Provider Obstetrics & Gynecology
DX: O09.299 Supervision of pregnancy with other poor reproductive or obstetric history, unspecified trimester (principal); Z3A.00 Weeks of gestation of pregnancy not specified
CPT/HCPCS: 36415; 82947; 85025; 86592

== ENCOUNTER 2025-01-13 20:38 | Outpatient (CLI) | payer OTHER, SELFPAY ==
--- OUTSIDE RECORDS SUMMARY | 2025-01-13 20:41 | XMS_ITS | Clinical Summary ---
Author Organization [facility] Address [address] [place] [address] Care Team Providers Care Health And Safety Tech Name Role Phone Huma Epps Primary Care Provider [phone] Allergies No known active allergies Medications busPIRone [...] for routine visit Vaginal bleeding in 09/22/2020 Scoliosis 10/11/2017 Elevated rheumatoid factor 10/10/2017 Polyarthralgia 10/10/2017 Resolved Problems Problem Noted Date Diagnosed Date Resolved Date Constipation 09/22/2020 12/22/2024 Positive urine test 07/06/2020 10/20/2020 Pap smear [...] 10/31/2011 [facility]-Cervical Cancer Screening 2020 [facility]-HPV/Cotest 2020 [id number] Vaccine ( season) 2024 [facility]-Influenza Vaccine (#1) 2024 12/09/2020 [facility]-DTaP,Tdap,and Td [...] age to complete this topic Insurance AETNA [facility] MEDICAID Care Teams Health And Safety Tech Relationship Specialty Start Date End Date Huma Epps PA [address] [place] [address] PCP - General 08/14/20
[2025-01-13 20:54] VITALS: BP 113/71; PULSE 96; RESP 18; TEMP 36.9; O2SAT 98
[2025-01-13 20:59] VITALS: BMI 33.1
[2025-01-13 21:00] VITALS: BP 121/74
[2025-01-13 21:01] VITALS: BMI 33.1
[2025-01-13 21:07] LABS: Microscopic, Urine URINE MICROSCOPIC (MICROSCOPIC)
[2025-01-13 21:15] VITALS: BP 113/72
[2025-01-13 21:16] LABS: Bilirubin,Urine Negative (Negative); Color,Urine YELLOW (Yellow); Glucose,Urine (UA) Negative (Negative); Ketones,Urine Negative (Negative); Leukocyte Esterase,Urine Negative (Negative); PH,Urine 6.0 (5.0-8.5); Protein,Urine TRACE (Negative); Specific Gravity, Urine 1.025 (1.005-1.030); Urobilinogen,Urine 0.2 EU/dl (0.2)
[2025-01-13 21:27] LABS: Amorphous Sediment,Urine 1+ /lpf; Bacteria,Urine 2+ /lpf; Mucus,Urine 1+ /lpf; Squamous Epithelial Cell,Urine 50-100 #/hpf (0-5)
== END 2025-01-13 21:44 | disposition home or self-care (01) ==
LOC: OBOUT 20:39 → OB 20:40
PROVIDERS: PCP Family Medicine; Visit Provider Obstetrics & Gynecology
DX: O26.893 Other specified pregnancy related conditions, third trimester (principal); R10.9 Unspecified abdominal pain; Z3A.29 29 weeks gestation of pregnancy
CPT/HCPCS: 59025; 81001; 87086; 87088; 87186; 99212; G0463

== ENCOUNTER 2025-01-21 14:48 | Outpatient (CLI) | payer OTHER, SELFPAY ==
--- OUTSIDE RECORDS SUMMARY | 2025-01-21 15:01 | XMS_ITS | Clinical Summary ---
Author Organization [facility] Address [address] [place] [address] Care Team Providers Care House Officer Name Role Phone Huma Epps Primary Care Provider [phone] Allergies No known active allergies Medications busPIRone [...] 10/31/2011 [facility]-Cervical Cancer Screening 2020 [facility]-HPV/Cotest 2020 [id number] Vaccine ( season) 2024 [facility]-Influenza Vaccine (#1) [...] age to complete this topic Insurance AETNA [facility] MEDICAID Care Teams House Officer Relationship Specialty Start Date End Date Huma Epps PA [address] [place] [address] PCP - General 08/14/20
[2025-01-21 15:06] VITALS: BP 114/77; PULSE 108; RESP 16; TEMP 36.9; O2SAT 97; BMI 32.5
--- NOTE | 2025-01-21 16:11 | US_ITS ---
PROCEDURE INFORMATION: Exam: US Biophysical Profile Without Non-Stress Test Exam date and time: 01/21/2025 4:04 PM Age: 34 years old Clinical indication: Other: Dec featl movement; ; Additional info: Decreased movement. TECHNIQUE: Imaging protocol: US biophysical profile without non-stress testing. COMPARISON: US OB /MATERNAL DETAIL 11/11/2024 12:43 PM FINDINGS: Gestation: There is a single live intrauterine gestation breech presentation. movement and breathing were noted. heart rate: 128 bpm Placenta: Placenta is posterior with a lateral wrap, as before, and is grade 2. Amniotic fluid index: GREGORY is 12.52 cm. The cervix is not visualized on current exam. BIOPHYSICAL PROFILE: breathing (BPP): 2 /2 gross body movement (BPP): 2 /2. tone (BPP): 2 /2 Amniotic fluid (BPP): 2 /2 Biophysical profile score (BPP): 8 /8 urinary bladder: Detailed anatomic survey was not performed. The bladder and three-vessel cord, are within range of normal. IMPRESSION: 1. Single live intrauterine gestation in breech presentation. 2. BPP measures 8/8. 3. GREGORY equals 12.52 cm. 4. Posterior grade 2 placenta.
--- NOTE | 2025-01-21 16:23 | EXP.OB.CONS ---
History of Present Illness *Admission Date: 01/21/25 *Reason for visit:: Decreased movement *History of present illness: Francisco is a 34-year-old who presents for decreased movement. Reports that since being here she has felt 10 movements in the first hour. We will go ahead and get a BPP as this is her second visit for decreased movement [facility] Disclaimer: The information contained in this section may have been updated after the patient was seen, as this information can be updated by other users. Medical History Request for sterilization History of pre-eclampsia in prior , currently Marijuana use during Tobacco use affecting in second trimester, antepartum Sebaceous cyst left cheek Family history of lupus anticoagulant disorder Raynaud phenomenon Numbness of fingers Surgical History History of x 3 Family History Other Asthma Cancer FHx: mental illness Social History Smoking Status: Current every day smoker tobacco type: cigarettes packs per day: 1 second hand exposure: Yes alcohol intake: never substance use type: denies use current occupational status: unemployed Travel in the last 8 weeks?: None household members: children housing: house Review of Systems Review of Systems Review of systems (narrative): Review of Systems Constitutional: Denies fever, chills, and sweats Eyes: Denies vision change/ pain Respiratory: Denies cough and shortness of breath Cardiovascular: Denies chest pain and lightheadedness Gastrointestinal: Denies abdominal pain. Denies nausea, vomiting. Genitourinary: Denies dysuria and incontinence Musculoskeletal: Denies shoulder pain and back pain Neurological: Denies change in speech or headaches Meds Home Medications and Allergies Home Medications ?Medication ?Instructions ?Recorded ?Confirmed ?Type docusate sodium 100 mg capsule 100 mg PO DAILY #30 caps 08/14/24 01/13/25 Rx (Colace) vits no.126-ferrous fum tab PO 08/14/24 01/13/25 History 28 mg iron-folic acid 800 mcg tablet (Classic ) aspirin 81 mg tablet 81 mg PO DAILY 10/09/24 01/13/25 History ondansetron 4 mg disintegrating 4 mg PO Q8H PRN nausea and 01/10/25 01/13/25 Rx tablet vomiting #30 tabs nitrofurantoin 100 mg PO Q12H 7 days #14 caps 01/14/25 Rx monohydrate/macrocrystals 100 mg capsule (Macrobid) New Prescriptions to Start Prescriptions: Allergies Allergy/AdvReac Type Severity Reaction Status Date / Time No Known Allergies Allergy Verified 01/13/25 14:11 OB (Inpt) Vital signs and Labs for Last 24 Hours: Temp Pulse Resp BP Pulse Ox O2 Del Method 98.5 F 108 H 16 114/77 97 Room Air 01/21/25 15:06 01/21/25 15:06 01/21/25 15:06 01/21/25 15:06 01/21/25 15:06 01/21/25 15:06 I & O for Labs for Last 24 Hours: Intake & Output 01/18/25 01/19/25 01/20/25 01/21/25 23:59 23:59 23:59 23:59 Weight 190 lb Results Labs Labs: All other labs normal. Assessment and Plan *Assessment and plan (1) Decreased movement: Status: Acute Category: Medical Code(s): O36.8190 - Decreased movements, unspecified trimester, not applicable or unspecified Plan NST reactive BPP ordered movement noted in the room in the patient's marking movement as well Follow-up as scheduled outpatient Reassurance provided to the patient and discussed with her that she could come to labor and delivery anytime that she needed to
== END 2025-01-21 16:51 | disposition home or self-care (01) ==
LOC: OBOUT 14:50 → OB 14:52
PROVIDERS: PCP Family Medicine; Visit Provider Obstetrics & Gynecology
DX: O32.1XX0 Maternal care for breech presentation, not applicable or unspecified (principal); O36.8130 Decreased fetal movements, third trimester, not applicable or unspecified; Z3A.30 30 weeks gestation of pregnancy
CPT/HCPCS: 59025; 76819; 99212; G0463

== ENCOUNTER 2025-03-19 11:19 | Outpatient (CLI) | payer OTHER, SELFPAY ==
[2025-03-19 08:28] VITALS: BMI 35.2
[2025-03-19 11:39] LABS: Hematocrit 36.4 % (37.0-47.0); Hemoglobin 12.1 g/dL (12.2-16.2); Immature Granulocytes % 1.6 %; Mean Corpuscular HGB Conc 33.2 g/dL (31.8-35.4); Mean Corpuscular Hemoglobin 29.6 pg (27.0-31.2); Mean Corpuscular Volume 89.0 fl (81-99); Nucleated Red Blood Cells % 0 %; Platelet Count 325 K/mm3 (142-424); Red Blood Count 4.09 M/mm3 (4.20-5.40); Red Cell Distribution Width-SD 44.9 fL; White Blood Count 12.5 K/mm3 (4.8-10.8)
[2025-03-19 11:51] LABS: Alanine Aminotransferase 32 U/L (12-78); Albumin Level 4.0 g/dl (3.5-5.0); Albumin/Globulin Ratio 1.1 (1.1-1.8); Alkaline Phosphatase 203 U/L (38-126); Anion Gap 9.6 mEq/L (5-15); Aspartate Amino Transferase 32 U/L (14-36); Bilirubin,Total 0.7 mg/dl (0.2-1.3); Blood Urea Nitrogen 8 mg/dl (7-17); Calcium 9.2 mg/dl (8.4-10.2); Carbon Dioxide 21 mmol/L (22.0-30.0); Chloride 111 mmol/L (98-107); Creatinine Clearance Estimated 194 mL/min (50-200); Creatinine,Serum 0.60 mg/dl (0.52-1.04); Estimated Glomerular Filt Rate 114 ml/min (>60); GFR (African American) 138 ML/MIN (>60); Globulin 3.6 g/dL (1.3-3.2); Glucose 75 mg/dl (74-100); Potassium 3.6 mmoL/L (3.5-5.1); Sodium 138 mmol/L (136-145); Total Protein,Serum 7.6 g/dl (6.3-8.2)
--- OUTSIDE RECORDS SUMMARY | 2025-03-19 12:53 | XMS_ITS | Clinical Summary ---
Author Organization [facility] Address [address] [place] [address] Care Team Providers Care Banking Attorney Name Role Phone Huma Epps Primary Care Provider [phone] Allergies No known active allergies Medications busPIRone [...] Date Last Done Comments [facility]-Depression Screening 1990 [facility]-Infant/Child/Adol SDOH Screenings 1990 [facility]-Varicella Vaccines (1 of 2 - 13+ 2-dose series) 10/31/2003 [facility]- SDOH Screenings 2008 [facility]-Adult SDOH Screenings 2008 [facility]-Pap Smear 10/31/2011 [facility]-Cervical Cancer Screening 2020 [facility]-HPV/Cotest 2020 [id number] Vaccine ( season) 2024 [facility]-Influenza Vaccine (#1) [...] age to complete this topic Insurance [employer] [facility] MEDICAID Care Teams Banking Attorney Relationship Specialty Start Date End Date Huma Epps PA [address] [place] [address] PCP - General 08/14/20
== END 2025-03-19 23:59 | disposition home or self-care (01) ==
LOC: PREOP 11:21
PROVIDERS: PCP Family Medicine; Visit Provider Obstetrics & Gynecology
DX: Z01.812 Encounter for preprocedural laboratory examination (principal); O09.299 Supervision of pregnancy with other poor reproductive or obstetric history, unspecified trimester; O34.219 Maternal care for unspecified type scar from previous cesarean delivery; Z30.2 Encounter for sterilization; Z3A.00 Weeks of gestation of pregnancy not specified
CPT/HCPCS: 80053; 85025

== ENCOUNTER 2025-03-24 04:59 | Inpatient (IN) | payer OTHER, SELFPAY ==
[2025-03-19 13:15] VITALS: BMI 35.2
[2025-03-24] VITALS (9 sets, daily range): BP systolic 114–151; BP diastolic 62–88; PULSE 70–93; RESP 16–28; TEMP 36.3–36.9; O2SAT 98–99; BMI 35.0
--- OUTSIDE RECORDS SUMMARY | 2025-03-24 05:02 | XMS_ITS | Clinical Summary ---
Author Organization [facility] Address [address] [place] [address] Care Team Providers Care Staff Pharmacist Hospital Name Role Phone Huma Epps Primary Care Provider [phone] Allergies No known active allergies Medications busPIRone [...] 10/31/2011 [facility]-Cervical Cancer Screening 2020 [facility]-HPV/Cotest 2020 [id number] Vaccine ( season) 2024 [facility]-Influenza Vaccine (#1) [...] age to complete this topic Insurance [employer]ETNA [facility] MEDICAID Care Teams Staff Pharmacist Hospital Relationship Specialty Start Date End Date Huma Epps PA [address] [place] [address] PCP - General 08/14/20
[2025-03-24] MEDS: LACTATED RINGERS 1000ML 1,000 ML 250 ML IV (05:30)
[2025-03-24 05:43] LABS: Hematocrit 33.7 % (37.0-47.0); Hemoglobin 11.6 g/dL (12.2-16.2); Immature Granulocytes % 1.1 %; Mean Corpuscular HGB Conc 34.4 g/dL (31.8-35.4); Mean Corpuscular Hemoglobin 30.3 pg (27.0-31.2); Mean Corpuscular Volume 88.0 fl (81-99); Nucleated Red Blood Cells % 0 %; Platelet Count 266 K/mm3 (142-424); Red Blood Count 3.83 M/mm3 (4.20-5.40); Red Cell Distribution Width-SD 44.1 fL; White Blood Count 12.7 K/mm3 (4.8-10.8)
[2025-03-24 05:48] LABS: Chloride 111 mmol/L (98-107); Potassium 3.4 mmoL/L (3.5-5.1); Sodium 136 mmol/L (136-145)
[2025-03-24 05:51] LABS: Anion Gap 9.4 mEq/L (5-15); Blood Urea Nitrogen 10 mg/dl (7-17); Carbon Dioxide 19 mmol/L (22.0-30.0); Creatinine Clearance Estimated 193 mL/min (50-200); Creatinine,Serum 0.60 mg/dl (0.52-1.04); Estimated Glomerular Filt Rate 114 ml/min (>60); GFR (African American) 138 ML/MIN (>60)
[2025-03-24] MEDS: CITRIC ACID/SODIUM CITRATE ORAL SOLN 30ML UDC 30 ML PO (05:51)
[2025-03-24 05:52] LABS: Calcium 8.6 mg/dl (8.4-10.2); Glucose 88 mg/dl (74-100)
[2025-03-24 06:34] LABS: Barbiturates Screen,Urine Negative ng/ml (<200)
[2025-03-24 06:35] LABS: Benzodiazepines Screen,Urine Negative ng/ml (<200)
[2025-03-24 06:36] LABS: Amphetamine/Metha Screen,Urine Negative ng/ml (<1000)
[2025-03-24 06:38] LABS: Methadone Screen,Urine Negative ng/ml (<300); Opiate Screen,Urine Negative ng/ml (<300)
[2025-03-24 06:39] LABS: Phencyclidine Screen,Urine Negative ng/ml (<25)
[2025-03-24] MEDS: 0.9 % SODIUM CHLORIDE 100 ML 25 ML IV (07:21)
[2025-03-24] MEDS: CEFAZOLIN 2GM VIAL 2 GM (07:21)
--- NOTE | 2025-03-24 07:22 | P.OP_ITS ---
Date of procedure: 03/24/25 Pre-op Diagnosis:: 1. IUP at 39w2d 2. History of x 3 3. Maternal obesity 4. Tobacco use during 5. Marijuana use during 6. Request for permanent sterilization Post-op Diagnosis:: 1. IUP at 39w2d 2. History of x 3 3. Maternal obesity 4. Tobacco use during 5. Marijuana use during 6. Request for permanent sterilization 7. Intrapelvic adhesions Procedure performed:: 1. Lysis of adhesions 2. Repeat Low Transverse Section 3. Bilateral salpingectomy Surgeon:: Colleen aBldwin DO Contract Mail Carrier(s):: Unique Alexis DO MEDICAL OFFICE SCHEDULER:: Gilbert King Anesthesia: GETA and spinal Estimated blood loss (mL): 800 Clinical Note:: Ms Francisco Galdamez is a 34 yo at 39w2d who presents for scheduled repeat c- section. She has had good care. History of x 3. complicated by maternal obesity, tobacco use and marijuana use. She is complete with childbearing and desires permanent sterilization. Operative findings:: 1. Dense adhesions between fascia and rectus muscle. Dense adhesions between omentum and rectus muscle present after entering fascia. Adhesions between omentum and anterior uterine serosa present 2. Live male baby, Alyssantmargaret, weighing 7lb 4 oz. APGARs 8 (1 min), 9 (5 min). Double footling breech presentation 3. Meconium stained amniotic fluid 4. Bilateral fallopian tubes and ovaries grossly normal Operative note:: The risks, benefits and alternatives of the procedure were reviewed with the patient. Informed consent was obtained. Patient was taken to the operating room where spinal anesthesia was placed. The patient received 2 grams of Ancef preoperatively. Patient was placed in dorsal supine position with a leftward tilt. SCDs in place. Izaguirre catheter had been placed and was draining clear urine prior to the start of the procedure. heart tones were obtained. Patient was then prepped and draped in normal sterile fashion. Allis clamp test was performed to ensure adequate anesthesia. A Pfannenstiel skin incision was made 2 cm above pubic symphysis along prior Pfannenstiel scar. This was carried through to underlying layer of fascia. Fascia was incised in midline, extended laterally with Escobar scissors. Superior aspect of fascial incision was grasped with two Mynor clamps, elevated up, and rectus muscle dissected off bluntly and sharply with Escobar scissors and Bovi cautery. Omentum was noted to be adhered to the rectus muscles. Lysis of dense adhesions between rectus muscle and omentum was performed. The peritoneum was entered bluntly with a digit. Peritoneal incision was then extended superiorly and inferiorly with good visualization of the bladder. Benson retractor was inserted. Lysis of adhesions between anterior uterine serosa and omentum was performed. The lower uterine segment was incised in a transverse fashion. Meconium stained amniotic fluid was noted. Baby was double footling breech presentation. He was delivered using standard breech delivery technique. Mouth and nares were bulb suctioned. Spontaneous cry was noted. Delayed cord clamping was performed for 60 seconds. The umbilical cord was clamped and cut. The infant was handed to awaiting pediatric staff in stable condition. Dr. Medina was present. Apgars were 98(1 min), 9(5 min). Cord blood was obtained. Gentle traction on the umbilical cord and uterine fundal massage delivered the placenta. Placenta was intact. Requested to send placenta to pathology but patient refused because she requests to take her placenta home. Uterus was cleared of all clots and debris with a moist laparotomy sponge. Corners of the uterine incision were grasped with Allis clamps. The uterine incision was reapproximated with # 1 Vicryl suture in a running, locked stitch. Second layer of the same stitch was used to imbricate the incision. Small amount of oozing noted. Laparotomy sponge was held over closed incision and attention was turned to fallopian tubes. Attention was then turned to the left fallopian tube, which was grasped with a Edwin clamp. Enseal device was used to clamp, ligate and transect the right mesosalpinx and fallopian tube at uterine cornua,. Same procedure was carried out on the contralateral side. Gutters cleared of all clots and debris with a moist laparotomy sponge. Reinspec tion of the lower uterine segment demonstrated small venous oozing. Patient was very uncomfortable during surgery and was in pain. Decision was made to transition to general anesthesia for better evaluation and control of oozing. 0 Monocryl and 0 Vicryl suture was used to ligate the oozing vessels. Small amount of oozing remained. Benson retractor was removed and pelvis was irrigated. Posterior cul-de-sac was cleaned with moist laparotomy sponge. Reinspection of lower uterine segment demonstrated very small amount of oozing. Surgicel powder was applied over uterine incision. Hemostasis was noted. Gel Foam was also placed along incision. At this point all instruments and sponges were removed from the pelvis.? The peritoneum was grasped with Radha clamps x 3. The peritoneum was reapproximated with 0 Vicryl suture in a running stitch. The corners of the fascia were grasped with Mynor clamps, and the fascia was reapproximated with two # 1 Vicryl suture overlapped to the right of midline. Subcutaneous tissue was irrigated with clear return of fluids. The subcutaneous tissue was reapproximated with 2-0 Vicryl. The skin was reapproximated with Insorb leela. Steri strips and Telfa were placed over closed Pfannenstiel skin incision. At the end of the procedure, the uterus was firm with minimal vaginal bleeding. Patient tolerated the procedure well. Instrument, sponges and needle counts were correct x 2. Mom and baby were transported to recovery room in stable condition. Condition: stable Disposition: floor Specimens:: 1. Cord blood 2. Bilateral fallopian tubes Complications:: None
--- NOTE | 2025-03-24 07:24 | EXP.OB.APHP ---
OB - H&P: HPI Antepartum History of Present Illness Chief complaint: Scheduled repeat History of present illness: Ms Francisco Galdamez is a 34 yo at 39w2d who presents for scheduled repeat . She has had good care. History of x 3. complicated by maternal obesity, tobacco use and marijuana use. She is complete with childbearing and desires permanent sterilization. History of Present Criteria for establishing EDC:: LMP confirmed by 1st trimester US care: good care Ultrasounds: normal mid trimester US Obstetrical complications: previous Medical complications: none Labs Blood type: O (+) positive Rubella: immune RPR/VDRL: nonreactive HBsAG: negative PFSH PFSH Disclaimer: The information contained in this section may have been updated after the patient was seen, as this information can be updated by other users. Medical History (Updated 03/24/25 @ 07:28 by Colleen Baldwin DO) with 39 completed weeks gestation Tobacco use affecting , antepartum Maternal obesity affecting , antepartum Request for sterilization History of pre-eclampsia in prior , currently Marijuana use during Tobacco use affecting in second trimester, antepartum Sebaceous cyst Family history of lupus anticoagulant disorder Raynaud phenomenon Numbness of fingers Surgical History History of excision of dermoid cyst History of tonsillectomy and adenoidectomy History of laparoscopic cholecystectomy History of Family History Other Asthma Cancer FHx: mental illness Social History (Updated 03/24/25 @ 06:16 by Ayleen Jimenez RN) Smoking Status: Current every day smoker tobacco type: cigarettes packs per day: 1 second hand exposure: Yes alcohol intake: never substance use type: denies use current occupational status: unemployed Travel in the last 8 weeks?: None household members: children housing: house Have you lived/traveled outside US in past 30 days?: No Contact w/someone who lives/traveled outside US past 30 days?: No Exposure to someone with infectious disease in past 14 days?: No Do you have a fever (greater than 100.4 F or 38 C)?: No Have you tested positive for COVID-19?: No Exposed to someone with COVID-19 in past 14 days?: No Do you have a sore throat?: No Do you have a cough?: No Do you have any weakness?: No Are you experiencing any nausea/vomitting?: Yes Do you have any diarrhea?: No Are you experiencing any unusual bleeding?: No Do you have any muscle aches/pain?: No Do you have any abdominal pain?: No Are you experiencing loss of taste or smell?: No Other Medical History Have you received the Flu Vaccine for this season: No Have you received the Pneumonia Vaccine: No Review of Systems Review of Systems Review of systems:: pertinent systems reviewed and negative unless documented below Meds Home Medications and Allergies Home Medications ?Medication ?Instructions ?Recorded ?Confirmed ?Type vits no.126-ferrous fum 1 tab PO DAILY 08/14/24 03/24/25 History 28 mg iron-folic acid 800 mcg tablet (Classic ) aspirin 81 mg tablet 81 mg PO DAILY 10/09/24 03/24/25 History ondansetron 4 mg disintegrating 4 mg PO Q8H PRN nausea and 01/10/25 03/24/25 Rx tablet vomiting #30 tabs docusate sodium 100 mg capsule 100 mg PO NEEDED PRN stool 03/19/25 03/24/25 History (Colace) softener New Prescriptions to Start Prescriptions: Allergies Allergy/AdvReac Type Severity Reaction Status Date / Time No Known Allergies Allergy Verified 03/24/25 06:25 OB - H&P: Exam Physical Exam Vital signs: Temp Pulse Resp BP Pulse Ox O2 Del Method 97.9 F 83 18 118/78 99 Room Air 03/24/25 06:10 03/24/25 06:10 03/24/25 06:10 03/24/25 06:10 03/24/25 06:10 03/24/25 06:10 Constitutional no acute distress and cooperative Routine HEENT Exam Head: Present normocephalic and atraumatic Eye: Absent conjunctivae pink ENT: Present mucous membranes moist Routine Neck Exam Present full ROM Routine Respiratory Exam Present CTA bilaterally and normal respiratory effort Routine Cardiovascular Exam Present RRR Routine Abdominal Exam Present soft (Gravid); Absent tenderness Routine Rectal Exam Patient deferred: visual exam Routine Exam External: Present normal urethra appearance; Absent erythema, swelling, tenderness, lesions or lacerations Routine Extremities Exam Present full ROM; Absent edema or calf tenderness Routine Neurological Exam Present alert, moving all extremities and normal speech Routine Psychiatric Exam Present normal affect and cooperative OB - Results Labs Labs: Short CBC 03/24/25 Range/Units 05:25 WBC 12.7 H (4.8-10.8) K/mm3 Hgb 11.6 L (12.2-16.2) g/dL Hct 33.7 L (37.0-47.0) % Plt Count 266 (142-424) K/mm3 BMP 03/24/25 05:25 Sodium 136 Potassium 3.4 L Chloride 111 H Carbon Dioxide 19 L BUN 10 Creatinine 0.60 Glucose 88 Calcium 8.6 OB - A/P Antepartum (1) with 39 completed weeks gestation: Status: Acute (2) History of : Problem details: x 3 Status: Acute (3) Maternal obesity affecting , antepartum: Status: Acute (4) Tobacco use affecting , antepartum: Status: Acute (5) Marijuana use during : Status: Acute (6) History of pre-eclampsia in prior , currently : Status: Acute (7) Request for sterilization: Status: Acute Additional Plan Additional Information:: Admit to [facility] for scheduled repeat and bilateral salpingectomy Reviewed risks, benefits, alternatives, expectations and possible complications. All questions addressed and answered. She voiced understanding of risks and possible complications of surgery. Consent form signed Proceed with scheduled repeat with BS
--- NOTE | 2025-03-24 07:38 | P.CONPHA_ITS ---
Pharmacy Intervention Comments: MEDICATION RECONCILIATION COMPLETED ON PATIENT USING EXTERNAL FILL HISTORY FROM PHARMACY AND LIST FROM [facility]. -ROQUE EPPSD
--- NOTE | 2025-03-24 07:38 | HMH.PHAINT1 ---
Pharmacy Intervention Comments: MEDICATION RECONCILIATION COMPLETED ON PATIENT USING EXTERNAL FILL HISTORY FROM PHARMACY AND LIST FROM [facility] OFF[facility]. -ROQUE EPPSD
[2025-03-24] MEDS: TRANEXAMIC ACID 1,000 MG/10 ML VIAL 1000 MG (08:29)
[2025-03-24] MEDS: HYDROMORPHONE 2MG/ML SYRINGE 0.5 MG IV ×4 (09:40→09:55)
--- NOTE | 2025-03-24 09:43 | EXP.ANES.I ---
[facility] Anesthesia Record Part I Anesthesia Record I Intake, IV Amount: 1,600 Hydration: Adequate Estimated blood loss (mL): 800 Urine output (mL): 400 Blood Products used (#): none Blood Pressure: 126/62 SaO2: 99 Pulse Rate: 93 Airway Patency: Patent Respiratory Rate: 28 Temperature: 97.3 F Patient is:: Drowsy and Stable Stable to PACU at:: 09:34
--- NOTE | 2025-03-24 09:46 | P.PNANES_ITS ---
[facility] Disclaimer: The information contained in this section may have been updated after the patient was seen, as this information can be updated by other users. Medical History (Updated 03/24/25 @ 07:28 by Colleen Baldwin DO) with 39 completed weeks gestation Tobacco use affecting , antepartum Maternal obesity affecting , antepartum Request for sterilization History of pre-eclampsia in prior , currently Marijuana use during Tobacco use affecting in second trimester, antepartum Sebaceous cyst Family history of lupus anticoagulant disorder Raynaud phenomenon Numbness of fingers Surgical History History of excision of dermoid cyst History of tonsillectomy and adenoidectomy History of laparoscopic cholecystectomy History of Family History Other Asthma Cancer FHx: mental illness Social History (Updated 03/24/25 @ 06:16 by Ayleen Jimenez RN) Smoking Status: Current every day smoker tobacco type: cigarettes packs per day: 1 second hand exposure: Yes alcohol intake: never substance use type: denies use current occupational status: unemployed Travel in the last 8 weeks?: None household members: children housing: house Have you lived/traveled outside US in past 30 days?: No Contact w/someone who lives/traveled outside US past 30 days?: No Exposure to someone with infectious disease in past 14 days?: No Do you have a fever (greater than 100.4 F or 38 C)?: No Have you tested positive for COVID-19?: No Exposed to someone with COVID-19 in past 14 days?: No Do you have a sore throat?: No Do you have a cough?: No Do you have any weakness?: No Are you experiencing any nausea/vomitting?: Yes Do you have any diarrhea?: No Are you experiencing any unusual bleeding?: No Do you have any muscle aches/pain?: No Do you have any abdominal pain?: No Are you experiencing loss of taste or smell?: No [facility] Anesthesia Checklist Patient Identification Patient Identification: Arm Band and Family Structural Data Admitted From: Inpatient Planned Operative Procedure/s: Consent for Planned Operative Procedure(s) Verified: Yes Verified Documents: Surgical Consent and History and Physical Additional verifications Anesthesia Reactions: No Hx Blood Transfusions: No Blood Transfusion Reaction: No Cephalosporin Allergy: No Previous Colonoscopy: No Airway Assessment Mallampati Score:: Class II C-Spine Mobility Assessed: Yes TMJ Mobility Assessed: Yes Dentition: Good Dentition Neurological Assessment Level of Consciousness: Awake, Alert, Appropriate and Follows Commands Hx Seizures: No Numbness or tingling in extremities: No Anesthesia Plan Anesthesia Risk discussed: Yes ASA Class: II Anesthesia Type: Spinal Preoperative Comments Pre-Operative Comments: Last spinal turned into general Anesthesia. Extremely anxious.
[2025-03-24] MEDS: KETOROLAC 30MG/ML VIAL 30 MG IV ×3 (09:53→21:21)
[2025-03-24 09:59] LABS: RPR W/RFX Titers Nonreactive (Nonreactive)
[2025-03-24] MEDS: MIDAZOLAM 2MG/2ML VIAL 2 MG (10:07)
[2025-03-24] MEDS: LACTATED RINGERS 1000ML 1,000 ML 125 ML IV (11:00)
[2025-03-24] MEDS: OXYTOCIN/RINGERS LACTATE 30 UNITS/500 ML BAG 40 UNITS IV (11:00)
[2025-03-24 12:02] LABS: Microscopic,Cath URINE MICROSCOPIC (MICROSCOPIC)
[2025-03-24] MEDS: ACETAMINOPHEN 500MG TAB 1000 MG PO ×3 (12:30→23:58)
[2025-03-24 12:32] LABS: Appearance,Urine/Cath CLEAR (Clear); Bilirubin,Cath Negative (Negative); Blood, Urine/Cath Negative (Negative); Color,Urine/Cath YELLOW (Yellow); Glucose,Urine/Cath (UA) Negative (Negative); Ketones,Urine/Cath Negative (Negative); Leukocyte Esterase,Cath Negative (Negative); Nitrate,Cath Negative (Negative); PH,Urine/Cath 6.0 (5.0-8.5); Protein,Urine/Cath Negative (Negative); Specific Gravity, Urine/Cath 1.010 (1.005-1.030); Urobilinogen,Cath 0.2 EU/dl (0.2)
--- NOTE | 2025-03-24 14:04 | EXP.ANES.II ---
[facility] Anesthesia Record Part II Anesthesia Record Part II Discharge Time: 10:14 Destination: Obstetric PACU nurse assessment reviewed?: Yes Patient Condition:: Good Anesthesia Complications:: None Swallowing reflex intact?: Yes Airway Patency: Patent Cyanosis?: No Blood Pressure: 138/74 SaO2: 98 Respiratory Rate: 16 Pulse Rate: 70 Temperature: 97.6 F Mental Status: Alert & Oriented Pain level:: 4 Nausea and/or vomitting:: None Intake, IV Amount: 0 Hydration: Adequate
[2025-03-24] MEDS: OXYCODONE 5MG IMMEDIATE RELEASE TABLET 5 MG PO ×3 (14:38→22:40)
[2025-03-24] MEDS: PRENATAL MULTIVITAMIN W/IRON 1 EACH PO (18:18)
[2025-03-25 00:25] VITALS: BP 108/61; PULSE 87; RESP 18; TEMP 36.7
[2025-03-25] MEDS: KETOROLAC 30MG/ML VIAL 30 MG IV (03:53)
[2025-03-25] MEDS: OXYCODONE 5MG IMMEDIATE RELEASE TABLET 5 MG PO ×3 (03:54→12:03)
[2025-03-25 04:00] VITALS: BP 120/70; PULSE 88; RESP 18; TEMP 37
[2025-03-25 05:49] LABS: Hematocrit 26.6 % (37.0-47.0); Hemoglobin 9.2 g/dL (12.2-16.2); Immature Granulocytes % 0.7 %; Mean Corpuscular HGB Conc 34.6 g/dL (31.8-35.4); Mean Corpuscular Hemoglobin 30.2 pg (27.0-31.2); Mean Corpuscular Volume 87.2 fl (81-99); Nucleated Red Blood Cells % 0 %; Platelet Count 233 K/mm3 (142-424); Red Blood Count 3.05 M/mm3 (4.20-5.40); Red Cell Distribution Width-SD 44.3 fL; White Blood Count 12.0 K/mm3 (4.8-10.8)
[2025-03-25] MEDS: ACETAMINOPHEN 500MG TAB 1000 MG PO ×3 (07:19→18:21)
[2025-03-25 08:06] VITALS: BP 114/86; PULSE 89; RESP 16; TEMP 36.9; O2SAT 99
[2025-03-25] MEDS: IBUPROFEN 400 MG TABLET 800 MG PO ×2 (08:58→16:55)
--- NOTE | 2025-03-25 10:12 | SW/DCPLANNER ---
Addendum entered by Betty Torres 03/25/25 12:23: Per Central Intake this report does meet criteria for investigation. Ondina ([phone]) w/ CPS stated that she will investigate at home after discharge (alternative response). Original Note: I received a consult on this patient regarding THC use during . Patient tested positive for THC on the following dates: 08-19-24, 01-20-25, 03-19-25 and admission 03-24-25. Infant UDS is also positive for THC on 03-24-25. Patient delivered infant male Frank Ball on 03-24-25. Infant's father (Peña Millerpper 10-23-86) is involved and was present at the time of my visit. Patient, Frank Pompa and two other children will reside at [address] [place] [address] [address] [place] [address]. Patient's contact number is [phone]. Patient states no past Social Service involvement w/ other children. Patient will reach out to [facility]. Patient stated that she has the following items at home: crib, car seat, clothing, diapers and will be breast feeding. PED MD will be Dr Medina. Patient stated that she will have transportation to all follow up appointments. Patient is planned to discharge to discharge later today or tomorrow morning. Due to positive THC for patient and at admission I did make a report to [facility] Intake ID#[id number].
--- NOTE | 2025-03-25 12:30 | P.PN_ITS ---
Subjective *Date: 03/25/25 *Time: 12:30 Interval history: POD # 1 s/p RLTCS with BS Feeling well. Pain somewhat controlled. Breast feeding. Lochia is appropriate. Voiding without difficulty. Has not passed flatus yet. Tolerating regular diet. Denies fever/chills, chest pain and shortness of breath. No headaches, vision changes, lightheadedness/dizziness. No lower extremity swelling. Ambulating well ad chrissy. Medical Exam Vital signs and Labs for Last 24 Hours: Vital Signs Temp Pulse Resp BP Pulse Ox O2 Del Method 03/25/25 08:06 98.4 F 89 16 114/86 99 Room Air 03/25/25 04:00 98.6 F 88 18 120/70 03/25/25 00:25 98.1 F 87 18 108/61 L 03/24/25 20:00 98.4 F 79 18 114/70 99 Room Air 03/24/25 14:05 16 Intake and Output 03/24/25 03/25/25 03/25/25 23:59 07:59 15:59 Intake Total 875 / 2575 100 / 100 Output Total 800 / 800 Balance 75 / 1775 100 / 100 Intake: Intake, Total IV Amount 875 / 975 100 / 100 Cefazolin Sodium 2 gm In 0.9 % 100 / 100 Sodium Chloride 100 ml @ 200 mls/hr IV Q8H JAMES Rx#:[id number] Lactated Ringers 1000ML 1,000 625 / 625 ml @ 125 mls/hr IV .Q8H JAMES Rx# :[id number] Oxytocin/Ringers Lactate 30 250 / 250 units In 500 ml @ 40 mls/hr IV .[id number] JAMES Rx#:[id number] Output: Output, Urine Amount 100 / 100 Output, Urine Amount (Catheter) 700 / 700 [place]re 700 / 700 Laboratory Results - last 24 hr 03/24/25 07:30: Urine Color Yellow, Urine Appearance Clear, Urine pH 6.0, Ur Specific [place] 1.010, Urine Protein Negative, Urine Glucose (UA) Negative, Urine Ketones Negative, Urine Blood Negative, Urine Nitrate Negative, Urine Bilirubin Negative, Urine Urobilinogen 0.2, Ur Leukocyte Esterase Negative, Urine RBC None, Urine WBC None, Ur Squamous Epith Cells None, Urine Bacteria None 03/25/25 05:40: WBC 12.0 H, RBC 3.05 L, Hgb 9.2 L, Hct 26.6 L, MCV 87.2, MCH 30.2, MCHC 34.6, RDW 14.1, Plt Count 233, MPV 11.1 H, Neut % (Auto) 81.2 H, Lymph % (Auto) 10.4, Ramsey % (Auto) 4.9, Eos % (Auto) 2.5, Baso % (Auto) 0.3, Neut # (Auto) 9.7 H, Lymph # (Auto) 1.3, Ramsey # (Auto) 0.6, Eos # (Auto) 0.3, Baso # (Auto) 0.0 I & O for Labs for Last 24 Hours: Intake & Output 03/22/25 03/23/25 03/24/25 03/25/25 23:59 23:59 23:59 23:59 Intake Total 2575 / 2575 100 / 100 Output Total 800 / 800 Balance 1775 / 1775 100 / 100 Weight 204 lb Head: Present atraumatic and normocephalic ENT: Present normal exam Neck: Present full ROM Respiratory: Present CTA bilaterally and normal respiratory effort Cardiac: Present Reg Rate and Rhythm GI: Present soft, tenderness (appropriate mild tenderness postoperatively) and normal bowel sounds; Absent distention or guarding Rectal (female): Present deferred (female): Present deferred Extremities: Present full ROM; Absent edema or calf tenderness Neuro: Present alert, awake and moves all extremities Assessment and Plan *Assessment and plan (1) S/P repeat low transverse : Status: Acute Category: Surgical Code(s): Z98.891 - History of uterine scar from previous surgery (2) with 39 completed weeks gestation: Status: Acute Category: Medical Code(s): Z3A.39 - 39 weeks gestation of (3) Maternal obesity affecting , antepartum: Status: Acute Qualifiers: Obesity type affecting : unspecified obesity Qualified Code(s): O99.210 - Obesity complicating , unspecified trimester Category: Medical Code(s): O99.210 - Obesity complicating , unspecified trimester (4) Tobacco use affecting , antepartum: Status: Acute Category: Medical Code(s): O99.330 - Smoking (tobacco) complicating , unspecified trimester (5) Marijuana use during : Status: Acute Category: Medical Code(s): O99.320 - Drug use complicating , unspecified trimester; F12.90 - Cannabis use, unspecified, uncomplicated (6) History of pre-eclampsia in prior , currently : Status: Acute Category: Medical Code(s): O09.299 - Supervision of with other poor reproductive or obstetric history, unspecified trimester (7) History of : Problem Comment: x 3 Status: Acute Category: Surgical Code(s): Z98.891 - History of uterine scar from previous surgery (8) Request for sterilization: Status: Acute Category: Medical Code(s): Z30.2 - Encounter for sterilization (9) Acute blood loss anemia: Status: Acute Category: Medical Code(s): D62 - Acute posthemorrhagic anemia Plan Continue routine care Encouraged increased ambulation AM Hgb 9.2 (11.6 on admission) -- Venofer 200 mg IV x 1 dose given Possible d/c home tomorrow, POD # 2
[2025-03-25] MEDS: IRON SUCROSE COMPLEX 200 MG in 0.9 % SODIUM CHLORIDE 100 ML 220 MG IV (12:43)
[2025-03-25] MEDS: ONDANSETRON 4MG ODT 4 MG SL (13:09)
[2025-03-25] MEDS: OXYCODONE 5MG IMMEDIATE RELEASE TABLET 10 MG PO ×2 (15:31→20:00)
[2025-03-25] MEDS: PRENATAL MULTIVITAMIN W/IRON 1 EACH PO (16:55)
[2025-03-25 19:56] VITALS: BP 114/69; PULSE 96; RESP 18; TEMP 36.9; O2SAT 99
[2025-03-25] MEDS: SENNA 8.6MG TABLET 8.6 MG PO (20:00)
[2025-03-26] MEDS: IBUPROFEN 400 MG TABLET 800 MG PO ×2 (00:26→08:33)
[2025-03-26] MEDS: ACETAMINOPHEN 500MG TAB 1000 MG PO ×2 (00:27→05:38)
[2025-03-26 05:39] VITALS: BP 116/66; PULSE 87; RESP 18; TEMP 36.9; O2SAT 98
[2025-03-26] MEDS: OXYCODONE 5MG IMMEDIATE RELEASE TABLET 10 MG PO (05:45)
[2025-03-26] MEDS: ONDANSETRON 4MG ODT 4 MG SL (06:37)
[2025-03-26] MEDS: SENNA 8.6MG TABLET 8.6 MG PO (09:05)
--- NOTE | 2025-03-26 09:21 | EXP.DC.SUM ---
General Admission date:: 03/24/25 Discharge date: 03/26/25 HPI HPI HPI: Ms Francisco Galdamez is a 34 yo at 39w2d who presents for scheduled repeat . She has had good care. History of x 3. complicated by maternal obesity, tobacco use and marijuana use. She is complete with childbearing and desires permanent sterilization. Hospital Course Hospital Course Hospital Course: Francisco Galdamez is a 34yo POD#2 from a RLTCS and BSG. She delivered a live viable boy male infant on 03/24/2025 at 0800. Infant weighed 7 pounds 4 ounces. Apgars were 8 and 9 at 1 and 5 minutes respectively. She has done well . Patient has remained afebrile with her at her hospitalization. She is eating and drinking and ambulating. She is breast feeding. Her lochia is normal. She has O Rh+ blood, she is rubella immune and was group B streptococcus unknown. She will be discharged home to follow-up with Dr. Baldwin in 2 weeks time. She will continue with her vitamins and iron. She has a prescription for Percocet and will continue these at home. She will take ibuprofen as well. She was given the usual instructions with respect to limiting her activity, driving and sexual activity. She was given instructions with respect to wound care. Her condition on discharge is stable and improved. Exam Data for Last 24 hours Vital signs and Labs for Last 24 Hours: Temp Pulse Resp BP Pulse Ox O2 Del Method 98.4 F 87 18 116/66 98 Room Air 03/26/25 05:39 03/26/25 05:39 03/26/25 05:39 03/26/25 05:39 03/26/25 05:39 03/26/25 05:39 I & O for Last 24 hours: Intake & Output 03/23/25 03/24/25 03/25/25 03/26/25 23:59 23:59 23:59 23:59 Intake Total 2575 / 2575 210 / 210 Output Total 800 / 800 Balance 1775 / 1775 210 / 210 Weight 204 lb Constitutional Constitutional: no acute distress *Routine HEENT Exam Head: Present normocephalic Eye: Present EOMI and PERRL ENT: Present mucous membranes moist *Routine Neck Exam Neck: Present supple; Absent lymphadenopathy *Routine Respiratory Exam Respiratory: Present CTA bilaterally *Routine Cardiovascular Exam Cardiovascular: Present RRR *Routine Abdominal Exam Abdominal: Present soft; Absent tenderness Comments: hypoactive bowel sounds *Routine Extremities Exam Extremities: Absent cyanosis, clubbing or edema *Routine Skin Exam Skin: Present warm; Absent rash *Routine Neurological Exam Neurological: Present alert and oriented X3 DS: Diagnosis Discharge Diagnosis (1) S/P repeat low transverse : Status: Acute Code(s): Z98.891 - History of uterine scar from previous surgery (2) with 39 completed weeks gestation: Status: Acute Code(s): Z3A.39 - 39 weeks gestation of (3) Maternal obesity affecting , antepartum: Status: Acute Code(s): O99.210 - Obesity complicating , unspecified trimester Qualifiers: Obesity type affecting : unspecified obesity Qualified Code(s): O99.210 - Obesity complicating , unspecified trimester (4) Tobacco use affecting , antepartum: Status: Acute Code(s): O99.330 - Smoking (tobacco) complicating , unspecified trimester (5) Marijuana use during : Status: Acute Code(s): O99.320 - Drug use complicating , unspecified trimester; F12.90 - Cannabis use, unspecified, uncomplicated (6) History of pre-eclampsia in prior , currently : Status: Acute Code(s): O09.299 - Supervision of with other poor reproductive or obstetric history, unspecified trimester (7) History of : Status: Acute Code(s): Z98.891 - History of uterine scar from previous surgery Problem details: x 3 (8) Request for sterilization: Status: Acute Code(s): Z30.2 - Encounter for sterilization (9) Acute blood loss anemia: Status: Acute Code(s): D62 - Acute posthemorrhagic anemia Meds Home Medications and Allergies Home Medications ?Medication ?Instructions ?Recorded ?Confirmed ?Type vits no.126-ferrous fum 1 tab PO DAILY 08/14/24 03/24/25 History 28 mg iron-folic acid 800 mcg tablet (Classic ) ondansetron 4 mg disintegrating 4 mg PO Q8HP PRN nausea and 03/24/25 03/24/25 History tablet vomiting acetaminophen 500 mg tablet 500 mg PO Q6H PRN fever or pain 03/26/25 Rx #30 tabs docusate sodium 100 mg capsule 100 mg PO DAILYP PRN Constipation 03/26/25 Rx (Colace) #60 caps ferrous sulfate 325 mg (65 mg 325 mg PO DAILY #30 tabs 03/26/25 Rx iron) tablet,delayed release ibuprofen 800 mg tablet 800 mg PO Q8H PRN pain #60 tabs 03/26/25 Rx oxycodone 10 mg tablet 10 mg PO BID PRN pain #15 tabs 03/26/25 Rx sennosides 8.6 mg tablet (Senna 8.6 mg PO BIDP PRN Constipation 03/26/25 Rx Lax) #60 tabs simethicone 125 mg tablet 125 mg PO DAILY PRN abdominal 03/26/25 Rx distention #60 tabs New Prescriptions to Start Prescriptions: acetaminophen Reuben,Unique docusate sodium [Colace] Reuben,Unique ferrous sulfate Reuben,Unique ibuprofen Reuben,Unique oxycodone Reuben,Unique sennosides [Senna Lax] Reuben,Unique simethicone Unique Alexis Allergies Allergy/AdvReac Type Severity Reaction Status Date / Time No Known Allergies Allergy Verified 03/24/25 06:25 Discharge Plan Disposition Patient Disposition: Home, Self-Care Discharge Order Discharge Orders: Discharge Order (Routine); Ordered 03/26/25 Ordered By: Unique Alexis Follow up Plan Follow up with: Colleen Baldwin DO [Staff Physician, [employer]] - 04/09/25 4:00 pm Prescriptions/Medication Reconciliation: New sennosides [Senna Lax] 8.6 mg Tablet 8.6 mg PO BIDP PRN (Reason: Constipation) Qty: 60 2RF ibuprofen 800 mg tablet 800 mg PO Q8H PRN (Reason: pain) Qty: 60 2RF acetaminophen 500 mg tablet 500 mg PO Q6H PRN (Reason: fever or pain) Qty: 30 3RF simethicone 125 mg tablet 125 mg PO DAILY PRN (Reason: abdominal distention) Qty: 60 2RF ferrous sulfate 325 mg (65 mg iron) tablet,delayed release (DR/EC) 325 mg PO DAILY Qty: 30 3RF oxycodone 10 mg tablet 10 mg PO BID PRN (Reason: pain) Qty: 15 0RF Continued Classic 28 mg iron- 800 mcg tablet 1 tab PO DAILY ondansetron 4 mg tablet,disintegrating 4 mg PO Q8HP PRN (Reason: nausea and vomiting) docusate sodium [Colace] 100 mg capsule 100 mg PO DAILYP PRN (Reason: Constipation) Qty: 60 3RF Discontinued aspirin 81 mg tablet 81 mg PO DAILY Problem Reconciliation Problems Reviewed?: Yes Patient Discharge Instructions ACTIVITY: Continue current activity DIET: regular diet Additional Instructions: Congratulations on the delivery of your sweet baby boy. It is my privilege to be a part of your [employer] team and I am so thankful I could be a part of your special day. Discharge: 1. Take 800 mg Ibuprofen every 8 hours as needed for pain. You can also take 500-1000mg of Tylenol in between doses, every 6-8 hours. Use prescription pain medicine for pain you feel in between 8 hour interval. -No driving while taking narcotic pain medications. In order to drive you should be able to slam on the brakes without significant abdominal pain. 2. Wean from prescription pain medicine first. Do not drive while taking it. 3. Prescription pain medicine can make you constipated. Colace can be taken 1-2 times per day as you need. Make sure to drink at least 8 cups of water per day. 4. Iron supplements can make you constipated. Colace can be taken 1-2 times per day as you need. You can take iron tablets every other day if constipation is too bad. 5. Nothing in the vagina for 6 weeks - no intercourse, douching, tampons. No tub baths or swimming pools 6. Do not lift greater than 15 pounds for 6 weeks, this is the equivalent of 2 gallons of milk. 7. Reasons to return to L&D or call On-Call doctor - fever (greater than 100.4) - heavy vaginal bleeding (soaking through 1 pad in less than 2 hours or passing clots that are egg sized) - vaginal discharge (malodorous and/or purulent) - bleeding or discharge from her incision - severe headaches, leg tenderness/edema, or any other symptoms that warrant immediate medical attention. 8. depression/blues - Normal to feel anxious/overwhelmed for first 2 weeks - Talk to your doctor if: anxiety lasts over 2 weeks, trouble bonding with baby, withdrawing from other family members, thoughts of harming yourself or others Blood pressure and preeclampsia instructions - Please call if greater than 2 values are higher than: 150 systolic (the top number) or 100 diastolic (the bottom number). - Please go to the emergency room or labor and delivery triage if any value is higher than: 160 systolic (the top number) or 110 diastolic (the bottom number). - Please call if unrelenting headache (does not go away with rest or Tylenol or ibuprofen), changes in vision (spots, floaters, flashes of light), chest pain, shortness of breath, or right upper quadrant (liver) abdominal pain. Unique Alexis DO [facility] [phone] *Nothing in the Vagina for 6 weeks* *No strenuous activity* *No heavy lifting* *No tub baths until okay's by MD* Patient Instructions: Depression, Hemorrhage, DI for , DI for Pre-eclampsia, H Post Discharge Instructions Print Language: [place] Providers Primary Care Provider: Abram Tamayo Admit Provider: Colleen Baldwin Attending Provider: Colleen Baldwin
== END 2025-03-26 11:00 | disposition home or self-care (01) | DRG 784 ==
PROVIDERS: Admitting Provider Obstetrics & Gynecology; PCP Family Medicine; Visit Provider Obstetrics & Gynecology
PROC: 0UB70ZZ Excision of Bilateral Fallopian Tubes, Open Approach (ICD-10-PCS; CPT 59514; principal; 2025-03-24 07:30)
DX: O34.211 Maternal care for low transverse scar from previous cesarean delivery (principal); D62 Acute posthemorrhagic anemia; O99.324 Drug use complicating childbirth; O99.214 Obesity complicating childbirth; Z3A.39 39 weeks gestation of pregnancy; Z37.0 Single live birth; F12.90 Cannabis use, unspecified, uncomplicated; O90.81 Anemia of the puerperium; O32.8XX0 Maternal care for other malpresentation of fetus, not applicable or unspecified; O77.0 Labor and delivery complicated by meconium in amniotic fluid; O99.334 Smoking (tobacco) complicating childbirth; F17.210 Nicotine dependence, cigarettes, uncomplicated; Z30.2 Encounter for sterilization; Z23 Encounter for immunization; Z79.82 Long term (current) use of aspirin
CPT/HCPCS: 51702; 59025; 80048; 80307; 81001; 85025; 86592; 86850; 94761; J0665; J0666; J0690; J1171; J1756; J1885; J2210; J2250; J2405; J2590; J2704; J3010; J7120; Q0162